=== PATIENT | male | born 1960 | race Hispanic/Latino ===

== ENCOUNTER 2016-11-14 08:30 | Observation (INO) | payer OTHER, SELFPAY ==
[2016-11-14 08:54] LABS: #Basophils 0.1 thou/uL (0.0-0.2); #Eosinphils 0.2 thou/uL (0.0-0.7); #Lymphocytes 1.7 thou/uL (1.20-3.40); #Monocytes 0.6 thou/uL (0.11-0.59); #Neutrophils 5.3 thou/uL (1.40-6.50); %Basophils 0.9 % (0.0-1.0); %Lymphocytes 21.7 % (21.0-51.0); %Monocytes 7.9 % (0.0-10.0); Hematocrit 46.7 % (42.0-52.0); Mean Platelet Volume 9.1 fL (7.4-10.4); Red Blood Cell (RBC) Count 5.05 mill/uL (4.70-6.10); White Blood Cell (WBC) Count 7.8 thou/uL (4.8-10.8)
[2016-11-14 09:21] LABS: ALT (SGPT) 40 U/L (8-55); AST (SGOT) 31 U/L (5-34); Alkaline Phosphatase 117 U/L (40-150); Anion Gap 14 mmol/L (10-20); BUN (Urea Nitrogen) 8 mg/dL (8.4-25.7); Bilirubin, Total 0.4 mg/dL (0.2-1.2); CK (CPK) 151 U/L (30-200); Calc. Creatinine Clearance 0 mL/min (70-130); Calcium 8.9 mg/dL (7.8-10.44); Carbon Dioxide 21 mmol/L (22-29); Chloride 103 mmol/L (98-107); Estimated GFR-MDRD Greater than 90; Globulin 4.3 g/dL (2.4-3.5); Lipase 34 U/L (8-78); Protein, Total 7.9 g/dL (6.0-8.3)
[2016-11-14 09:25] LABS: Troponin I Less than 0.010 ng/mL (< 0.028)
--- NOTE | 2016-11-14 09:31 | RAD ---
CHEST 1 VIEW: HISTORY: Chest pain. COMPARISON: 08/31/14. FINDINGS: Cardiac silhouette is magnified by projection. Pulmonary vasculature is unremarkable. Mediastinum is midline. There is no lobar consolidation or evidence of pneumothorax. monitoring specialist leads ove rlie the chest. IMPRESSION: No active cardiopulmonary abnormalities are demonstrated. POS: [facility]
[2016-11-14] MEDS ORDERED: Ondansetron HCl/PF 4 MG/2 ML Vial ONE (09:44)
[2016-11-14 10:20] LABS: Bilirubin Negative (Negative); Blood, Urine Negative (Negative); Glucose, Urine (Dipstick) >=1000 mg/dL (Negative); Ketone, Urine Negative (Negative); Nitrite Negative (Negative); Protein, Urine (Dipstick) Negative (Neg-Trace)
--- NOTE | 2016-11-14 11:07 | RAD ---
LEFT SHOULDER THREE VIEWS: HISTORY: Chest pain, radiating to arm. COMPARISON: None. FINDINGS: Moderate osteoarthritic disease of the acromioclavicular joint. Enthesopathic changes of the greate r tuberosity are present. No acute fracture or malalignment. IMPRESSION: Mild osteoarthritic disease. POS: [facility]
[2016-11-14 12:14] LABS: Troponin I Less than 0.010 ng/mL (< 0.028)
[2016-11-14] MEDS ORDERED: Milk Of Magnesia 30 ML UDCUP PO PRN (12:22)
[2016-11-14] MEDS ORDERED: Dextrose 5% in Water 1,000 ML IV PRN (12:22)
[2016-11-14] MEDS ORDERED: Ondansetron ODT 4 MG TAB PO PRN (12:22)
[2016-11-14] MEDS ORDERED: Ondansetron HCl/PF 4 MG/2 ML Vial IVP PRN (12:22)
[2016-11-14] MEDS ORDERED: Mag-Al 1200 mg/1200 mg/30 ML UDCUP PO PRN (12:22)
[2016-11-14] MEDS ORDERED: HumaLOG 300 UNITS/3 ML VIAL SC PRN ×2 (12:22)
[2016-11-14] MEDS ORDERED: Loperamide HCl 2 MG CAP PO PRN (12:22)
[2016-11-14] MEDS ORDERED: Dextrose 50% Abboject 50 ML SYRINGE SLOW IVP PRN (12:22)
[2016-11-14] MEDS ORDERED: Zolpidem Tartrate 5 MG TAB PO PRN (12:22)
[2016-11-14] MEDS ORDERED: Ketorolac Tromethamine 30 MG/ML VIAL IVP PRN (12:22)
[2016-11-14] MEDS ORDERED: Senokot 8.6 MG TAB PO PRN (12:22)
[2016-11-14] MEDS ORDERED: HYDROcodone/Acetaminophen 5/325 mg Tablet PO PRN (12:22)
[2016-11-14] MEDS ORDERED: Acetaminophen 325 MG TAB PO PRN (12:22)
[2016-11-14 12:43] VITALS: BMI 42.1
--- NOTE | 2016-11-14 13:37 | SS ---
PRIMARY CARE PHYSICIAN: [facility] REASON FOR ADMISSION: Chest pain. HISTORY OF PRESENT ILLNESS: A 55-year-old male with a history of asthma and obesity, who c pooja to emergency room for complaint of chest pain. The patient reports that this morning he woke up around 5:30. He was getting ready for his work. When he was in shower, he was having chest pain w hich was left-sided in location which radiated to left upper extremity. He did not have any associa matias nausea, vomiting, diaphoresis. He was feeling mild shortness of breath. Chest pain lasted for about few minutes. As he was having left shoulder and arm pain, and he has noticed tingling and num bness feeling in his fingers, and that is why he was concerned about it and decided to come to the e mergency room for evaluation. The patient reports that for the last 2-3 weeks he is experiencing in termittent pricking needle-like pain in his left upper chest without any radiation, but this morning he experienced radiation to arm and that is why he was alarmed about cardiac etiology and decided t o come to the ER. Patient reports that this pain is getting worse with movement of the left upper extremity as well an d he attributes that pain is due to his chronic shoulder pain on his left side. He denies any lifti ng heavy weight. He denies any fever or chills. He denies any relation of chest pain with food, re spiration. He denies any cough, palpitations, dizziness, or syncope. In the emergency room, he had EKG which was unremarkable. His chest x-ray showed no acute cardiopul monary process. He was complaining of chronic shoulder pain and that is why shoulder x-ray was done which showed mild osteoarthritic changes. He was also found with a high blood sugar. PAST MEDICAL HISTORY: Mild intermittent asthma, morbid obesity, osteoarthritis. PAST SURGICAL HISTORY: Right arm surgery, cholecystectomy. PAST PSYCHIATRIC HISTORY: Reviewed and negative. SOCIAL HISTORY: The patient is . He lives at home with his . He drinks alcohol sociall y every week. He smokes occasionally. FAMILY HISTORY: Diabetes and hypertension runs among several family members. REVIEW OF SYSTEMS: The following complete review of systems was negative, unless otherwise mentione d in the HPI or below: Constitutional: Weight loss or gain, ability to conduct usual activities. Skin: Rash, itching. Eyes: Double vision, pain. ENT/Mouth: Nose bleeding, neck stiffness, pain, tenderness. Cardiovascular: Palpitations, dyspnea on exertion, orthopnea. Respiratory: Shortness of breath, wheezing, cough, hemoptysis, fever or night sweats. Gastrointestinal: Poor appetite, abdominal pain, heartburn, nausea, vomiting, constipation, or diar yo. Genitourinary: Urgency, frequency, dysuria, nocturia. Musculoskeletal: Pain, swelling. Neurologic/Psychiatric: Anxiety, depression. Allergy/Immunologic: Skin rash, bleeding tendency. Please see my HPI for pertinent positive and negative. All other review of systems reviewed and neg ative except as mentioned in the HPI. ALLERGIES: No known drug allergies. CURRENT MEDICATIONS: The patient is not taking any medication at this point. EMERGENCY ROOM COURSE: Patient is given IV fluid 1 liter, morphine 4 mg, Zofran 4 mg, and aspirin 3 24 mg. PHYSICAL EXAMINATION: VITAL SIGNS: On arrival, blood pressure 119/74, pulse 92, respiratory rate 20, temperature 98.6, sa turation 94% on room air, and weight 117.9 kilograms. GENERAL: The patient is currently alert, awake, no obvious acute distress. HEAD: Normocephalic, atraumatic. EYES: Pupils round, reactive to light. Extraocular muscles intact. ENT: Oropharynx within normal limits. Moist mucous membranes, no oral lesion, no pharyngeal erythe ma, no exudate. NECK: Supple, range of motion is normal. No meningeal signs of irritation. LUNGS: Clear to auscultation without any rhonchi or rales. CARDIAC: S1, S2 regular without any murmur. ABDOMEN: Morbid obesity limiting examination. Bowel sounds present, nontender, nondistended. No o rganomegaly, no mass, no suprapubic tenderness. BACK: Examination unremarkable. No CVA tenderness. EXTREMITIES: Upper extremity, left shoulder movement is limited due to pain, but otherwise passive movements of all joints are normal. Lower extremity, no edema. Good peripheral pulsation. SKIN: No skin rash. HEMATOLOGICAL SYSTEM: No lymphadenopathy. PSYCHIATRIC: Normal affect. NEUROLOGIC: Nonfocal examination. The patient moves all 4 limbs. Plantar bilateral flexor. IMAGING AND SIGNIFICANT LABORATORY DATA: 1. EKG based on my review reveals normal sinus rhythm within normal limits. Chest x-ray based on m y review, no acute cardiopulmonary process. Shoulder x-ray showed mild osteoarthritic changes on th e left side. 2. CBC: WBC 7.8, hemoglobin 15.8, and platelets 185. BMP: Sodium 134, potassium 3.9, chloride 10 3, carbon dioxide 21, BUN 8, creatinine 0.85, glucose 347, calcium 8.9. 3. LFT: AST 31, ALT 40, alkaline phosphatase 117, albumin 3.6. Lipase 34, CK 151, CK-MB 1.2, trop onin I less than 0.010. ASSESSMENT AND PLAN/IMPRESSION: 1. Acute and recurrent chest pain. This patient has underlying history of smoking, his age, and ne w onset of diabetes. In this way, he has 3 risk factors for coronary artery disease. His descripti on is atypical and probably non-anginal and musculoskeletal pain, but we need to rule out cardiac et iology. His initial EKG is negative. Troponins are negative. The patient is n.p.o. since this mor dana and he did not have any coughing up of any product and he prefers to go for stress test if poss ible today. We will do second set of cardiac enzyme and if that is negative, then we will consider doing a Cardiolite stress test later on today. We will also check D-dimer to rule out any thromboem bolic disorder. If his D-dimer is abnormal, then we will do CT angio to rule out thromboembolic dis order. We will check lipid profile for risk stratification. We will control his pain with Toradol. Meanwhile, we will continue with aspirin 325 mg p.o. daily and nitro patch q.8 hourly. 2. New onset diabetes type 2. We will consult dietitian for diabetic diet education. We will chec k hemoglobin A1c and we will consider adding metformin on discharge as well as glyburide 5 mg p.o. d aily on discharge. The patient is advised to buy glucometer and monitor blood sugar frequently at h ome and see primary care physician for further adjustment of therapy. 3. Morbid obesity. Dietary education given. Weight loss education given. Healthy lifestyle measu res discussed with the patient. 4. Deep venous thrombosis prophylaxis not needed because we are expecting discharge in 24 hours if possible later on today, otherwise tomorrow morning. 5. Gastrointestinal prophylaxis, Pepcid 20 mg p.o. b.i.d. CODE STATUS: Patient is FULL CODE. Disposition plan based on stress test result.
[2016-11-14] MEDS ORDERED: Nitroglycerin 2% Ointment 1 INCH/1 GM Packet TOP SCH (14:00)
[2016-11-14 15:29] VITALS: BP 111/70; TEMP 98.3
[2016-11-14 16:30] LABS: Hemoglobin A1c 10.5 % (4.0-6.0)
--- NOTE | 2016-11-14 19:20 | DIS ---
DATE OF ADMISSION: 11/14/2016 DATE OF DISCHARGE: 11/14/2016 PRIMARY CARE PHYSICIAN[facility]. DISCHARGE DISPOSITION: Home. PRIMARY DISCHARGE DIAGNOSES: 1. Chest pain, ruled out acute coronary syndrome. 2. New onset diabetes type 2. SECONDARY DISCHARGE DIAGNOSES: Obesity with body mass index 42, childhood asthma. PRIMARY PROCEDURE/OPERATION: None. RADIOLOGICAL INVESTIGATION: Chest x-ray normal. Should x-ray showed osteoarthritis, stress test wa s negative. SIGNIFICANT LABORATORY: CBC normal. D-dimer negative, cardiac enzymes negative. Hemoglobin A1c 10 .5, LDL 104. TSH 1.03. Cardiac enzymes negative. LFTs normal. Urinalysis unremarkable. DISCHARGE MEDICATIONS: Glyburide 5 mg p.o. daily, aspirin 81 mg p.o. daily, Pepcid 20 mg p.o. b.i.d ., lovastatin 20 mg p.o. at bedtime, and metformin 1000 mg p.o. b.i.d. CONTRAINDICATIONS: None. CODE STATUS: FULL CODE. INPATIENT CONSULTANTS: None. ALLERGIES: No known drug allergies. DISCHARGE PLAN: Post hospital, the patient will follow up with primary care physician in 1 week. HOSPITAL COURSE: A 55-year-old male who was admitted by me earlier today with chest pain. Please s ee my HPI for further details. EKG was normal. Chest x-ray was normal. Routine workup including c ardiac enzymes negative. This patient was diagnosed with new onset diabetes. His hemoglobin A1c wa s 10.5. He underwent treadmill exercise stress test and that was normal. We provided diabetes educ ation while in hospital. We prescribed diabetes medication and he will follow up with primary care physician as necessary. The patient education about new onset diabetes, diet and medication as well as hypoglycemia precautions discussed with the patient. The patient is clinically stable for discharge and he will follow up with primary care physician. The patient was admitted and discharged on the same day.
[2016-11-14] MEDS ORDERED: FLU VACC QS2017-18 36 mo. & older 0.5 ML SYRINGE IM ONE (21:00)
[2016-11-14] MEDS ORDERED: Famotidine 20 MG TAB PO SCH (21:00)
[2016-11-15] MEDS ORDERED: Aspirin 325 MG TAB PO SCH (09:00)
--- NOTE | 2016-11-16 17:48 | EKG ---
Test Reason : Blood Pressure : / mmHG Vent. Rate : 095 BPM Atrial Rate : 095 BPM P-R Int : 154 ms QRS Dur : 086 ms QT Int : 334 ms P-R-T Axes : 058 018 033 degrees QTc Int : 419 ms Normal sinus rhythm Normal ECG Confirmed by PERCY CONTRERAS ([id number]) on 11/16/2016 5:48:10 PM Referred By: Confirmed By:PERCY CONTRERAS
== END 2016-11-14 18:37 | disposition home or self-care (01) ==
LOC: ERS 08:30 → EEVIPCON 08:30 → 2SW 10:40
PROVIDERS: ADMIT Internal Medicine; ATTEND Internal Medicine
DX: R07.89 Other chest pain (principal); E11.9 Type 2 diabetes mellitus without complications; J45.909 Unspecified asthma, uncomplicated; M19.90 Unspecified osteoarthritis, unspecified site; F17.200 Nicotine dependence, unspecified, uncomplicated; E66.01 Morbid (severe) obesity due to excess calories; Z68.41 Body mass index [BMI] 40.0-44.9, adult; Z90.49 Acquired absence of other specified parts of digestive tract; Z98.890 Other specified postprocedural states
CPT/HCPCS: 36415; 36416; 71010; 80053; 80061; 81003; 82550; 82553; 83036; 83690; 84443; 84484; 85025; 85379; 93005; 93017; 94760; 96361; 96374; 96375; G0378; J2270; J2405

== ENCOUNTER 2017-08-13 08:35 | Emergency (ER) | payer SELFPAY ==
[2017-08-13 08:58] LABS: #Eosinphils 0.2 thou/uL (0.0-0.7); #Lymphocytes 1.6 thou/uL (1.20-3.40); #Monocytes 0.6 thou/uL (0.11-0.59); #Neutrophils 6.9 thou/uL (1.40-6.50); %Basophils 0.3 % (0.0-1.0); %Eosinophils 2.1 % (0.0-10.0); %Neutrophils 74.7 % (42.0-75.0); Hemoglobin 15.4 g/dL (14.0-18.0); Mean Corpuscular HGB CONC 33.6 g/dL (32.0-36.0); Mean Corpuscular Hemoglobin 30.7 pg (27.0-31.0); Mean Corpuscular Volume 91.4 fL (78.0-98.0); Platelet Count 167 thou/uL (130-400); RBC Distribution Width 12.7 % (11.5-14.5); Red Blood Cell (RBC) Count 5.01 mill/uL (4.70-6.10); White Blood Cell (WBC) Count 9.3 thou/uL (4.8-10.8)
[2017-08-13] MEDS ORDERED: Acetaminophen 500 MG TAB ONE ×2 (09:02)
--- NOTE | 2017-08-13 09:10 | RAD ---
TWO VIEWS CHEST: Comparison: None. History: Chest pain. FINDINGS: Two views of the chest show normal sized cardiomediastinal silhouette. There is no evidence of consol idation, mass, or pleural effusion. The bones are unremarkable. IMPRESSION: No evidence of acute cardiopulmonary disease. POS: [facility]
--- NOTE | 2017-08-13 09:17 | CT ---
CT OF THE BRAIN WITHOUT CONTRAST: Date: 08/13/17 COMPARISON: 08/31/14. HISTORY: Headache and chst pain. TECHNIQUE: Multiple contiguous axial images were obtained in a CT of the brain without contrast. FINDINGS: The brain is normal in morphology and attenuation without focal lesions or confluent areas of infarct ion. There is no evidence of hydrocephalus, intracranial hemorrhage, or extra-axial fluid collection. The calvarium and overlying soft tissues are unremarkable. The visualized paranasal sinuses and masto id air cells are well aerated. IMPRESSION: No evidence of acute intracranial abnormality. POS: [facility]
[2017-08-13 09:25] LABS: CKMB 0.9 ng/mL (0-6.6); Troponin I Less than 0.010 ng/mL (< 0.028)
[2017-08-13 10:52] LABS: ALT (SGPT) 37 U/L (8-55); AST (SGOT) 27 U/L (5-34); Albumin 3.9 g/dL (3.5-5.0); Alkaline Phosphatase 108 U/L (40-150); Anion Gap 11 mmol/L (10-20); BUN (Urea Nitrogen) 11 mg/dL (8.4-25.7); Bilirubin, Total 0.6 mg/dL (0.2-1.2); CK (CPK) 107 U/L (30-200); Calc. Creatinine Clearance 0 mL/min (70-130); Carbon Dioxide 24 mmol/L (22-29); Chloride 103 mmol/L (98-107); Estimated GFR-MDRD Greater than 90; Globulin 3.7 g/dL (2.4-3.5); Glucose 247 mg/dL (70-105); Lipase 20 U/L (8-78); Potassium 4.2 mmol/L (3.5-5.1); Protein, Total 7.6 g/dL (6.0-8.3); Sodium 134 mmol/L (136-145)
[2017-08-13 11:38] LABS: Troponin I Less than 0.010 ng/mL (< 0.028)
[2017-08-13] MEDS ORDERED: Ketorolac Tromethamine 30 MG/ML VIAL ONE (11:51)
--- NOTE | 2017-08-15 14:24 | EKG ---
Test Reason : Blood Pressure : / mmHG Vent. Rate : 095 BPM Atrial Rate : 095 BPM P-R Int : 148 ms QRS Dur : 084 ms QT Int : 332 ms P-R-T Axes : 055 -02 031 degrees QTc Int : 417 ms Normal sinus rhythm Normal ECG Confirmed by LINDA BRIONES ([id number]), purchasing expeditor KARYN IRENE ([id number]) on 08/15/2017 2:23:57 PM Referred By: Confirmed By:LINDA BRIONES
== END 2017-08-13 12:10 | disposition home or self-care (01) ==
LOC: ERS 08:35
DX: R07.9 Chest pain, unspecified (principal); R51 Headache; J45.909 Unspecified asthma, uncomplicated; E11.9 Type 2 diabetes mellitus without complications; F17.210 Nicotine dependence, cigarettes, uncomplicated
CPT/HCPCS: 36415; 70450; 71046; 80053; 82550; 82553; 83690; 84484; 85025; 93005; 96374; J1885

== ENCOUNTER 2018-08-10 18:45 | Emergency (ER) | payer SELFPAY ==
[2018-08-10] MEDS ORDERED: Lidocaine 1% w/Epinephrine 1:100K 20 ML VIAL ONE (19:57)
[2018-08-10] MEDS ORDERED: HYDROcodone/Acetaminophen 5/325 mg Tablet ONE (19:57)
[2018-08-10] MEDS ORDERED: Ibuprofen 800 MG TAB ONE (20:05)
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
== END 2018-08-10 21:50 | disposition home or self-care (01) ==
LOC: ERS 18:45
DX: S01.21XA Laceration without foreign body of nose, initial encounter (principal); E11.9 Type 2 diabetes mellitus without complications; Z79.84 Long term (current) use of oral hypoglycemic drugs; F17.210 Nicotine dependence, cigarettes, uncomplicated; W22.8XXA Striking against or struck by other objects, initial encounter
CPT/HCPCS: 12011; 70486; J2001

== ENCOUNTER 2018-08-18 16:56 | Emergency (ER) | payer SELFPAY | END 2018-08-18 18:00 | disposition home or self-care (01) | LOC: ERS 16:56 | DX: S01.511D Laceration without foreign body of lip, subsequent encounter (principal); E11.9 Type 2 diabetes mellitus without complications; E78.5 Hyperlipidemia, unspecified; J45.909 Unspecified asthma, uncomplicated; F17.210 Nicotine dependence, cigarettes, uncomplicated; Z79.899 Other long term (current) drug therapy; Z79.84 Long term (current) use of oral hypoglycemic drugs; X99.8XXD Assault by other sharp object, subsequent encounter ==

== ENCOUNTER 2020-09-29 13:54 | Inpatient (IN) | payer OTHER ==
[2020-09-29 14:34] LABS: Hemoglobin 16.3 g/dL (14.0-18.0); Mean Corpuscular HGB CONC 32.7 g/dL (32.0-36.0); Mean Corpuscular Hemoglobin 30.8 pg (27.0-31.0); Mean Corpuscular Volume 94.3 fL (78.0-98.0); Mean Platelet Volume 9.8 fL (7.4-10.4); Platelet Count 164 thou/uL (130-400); RBC Distribution Width 14.4 % (11.5-14.5); Red Blood Cell (RBC) Count 5.28 mill/uL (4.70-6.10); White Blood Cell (WBC) Count 24.1 thou/uL (4.8-10.8)
[2020-09-29 14:50] LABS: ALT (SGPT) 52 U/L (8-55); AST (SGOT) 15 U/L (5-34); Albumin 2.8 g/dL (3.5-5.0); Alkaline Phosphatase 288 U/L (40-110); Anion Gap 14 mmol/L (10-20); BUN (Urea Nitrogen) 18 mg/dL (8.4-25.7); Bilirubin, Total 0.9 mg/dL (0.2-1.2); Calc. Creatinine Clearance 0 mL/min (70-130); Calcium 9.3 mg/dL (7.8-10.44); Carbon Dioxide 28 mmol/L (22-29); Chloride 95 mmol/L (98-107); Globulin 3.8 g/dL (2.4-3.5); Glucose 436 mg/dL (70-105); Potassium 3.9 mmol/L (3.5-5.1); Protein, Total 6.6 g/dL (6.0-8.3); Sodium 133 mmol/L (136-145)
[2020-09-29] MEDS ORDERED: Morphine 4 MG/ML VIAL ONE (14:51)
[2020-09-29] MEDS ORDERED: Ibuprofen 800 MG TAB ONE (14:52)
[2020-09-29] MEDS ORDERED: Ondansetron PF 4 MG/2 ML Vial ONE (14:52)
[2020-09-29 14:58] LABS: Band 26 % (5-11); Lymphocytes 2 % (21-51); MDiff Complete? YES; Monocytes 2 % (0-10); Neutrophil 70 % (42-75); Platelet Morphology Comment Appears Adequate; RBC Morphology Normal; Vacuoles SLIGHT
[2020-09-29 15:28] LABS: Bilirubin Negative (Negative); Blood, Urine Negative (Negative); Clarity Clear (Clear); Glucose, Urine (Dipstick) Greater than 1000 mg/dL (Negative); Ketone, Urine Negative (Negative); Leukocyte Negative Leu/uL (Negative); Nitrite Negative (Negative); Protein, Urine (Dipstick) Negative (Neg-Trace); Specific Gravity, Urine 1.042 (1.002-1.036)
[2020-09-29] MEDS ORDERED: Dexamethasone 10 MG/ML VIAL ONE (15:37)
[2020-09-29] MEDS ORDERED: Piperacillin/Tazobactam 4.5 GM in Sodium Chloride 0.9% 100 ML IVPB SCH ×2 (15:45→18:00)
[2020-09-29] MEDS ORDERED: Benzonatate 100 MG CAP PO PRN (17:49)
[2020-09-29] MEDS ORDERED: Bisacodyl 5 MG TAB PO PRN (17:50)
[2020-09-29] MEDS ORDERED: Ondansetron PF 4 MG/2 ML Vial IVP PRN (17:50)
[2020-09-29] MEDS ORDERED: HumaLOG 300 UNITS/3 ML VIAL SC PRN (17:52)
[2020-09-29] MEDS ORDERED: Dextrose 5% in Water 1,000 ML IV PRN (17:52)
[2020-09-29] MEDS ORDERED: Dextrose 50% Abboject 50 ML SYRINGE SLOW IVP PRN (17:52)
[2020-09-29 18:25] LABS: Lactic Acid 1.7 mmol/L (0.5-2.2)
[2020-09-29] MEDS ORDERED: RENALLY ADJUST ANTIBIOTICS IVPB PRN (20:10)
[2020-09-29] MEDS ORDERED: Piperacillin/Tazobactam 3.375 GM VIAL ONE (20:20)
[2020-09-29] MEDS: Piperacillin/Tazobactam 3.375 GM in Sodium Chloride 0.9% 100 ML IVPB SCH (20:28)
[2020-09-29] MEDS ORDERED: Acetaminophen 325 MG TAB ONE (21:12)
[2020-09-29] MEDS: Acetaminophen 325 MG TAB PO PRN (21:33)
[2020-09-29] MEDS: Apixaban 5 MG TAB PO SCH (21:52)
[2020-09-29] MEDS: Atorvastatin Calcium 20 MG TAB PO SCH (21:52)
[2020-09-29] MEDS ORDERED: VANCOMYCIN 2 GRAM/400 ML BAG 2 GM in Premix Bag 1 BAG IVPB SCH (22:00)
[2020-09-29] MEDS ORDERED: Morphine 2 MG/ML VIAL ONE (23:11)
[2020-09-29] MEDS ORDERED: Morphine 2 MG/ML VIAL SLOW IVP SCH (23:15)
[2020-09-30 04:57] LABS: Anion Gap 12 mmol/L (10-20); BUN (Urea Nitrogen) 23 mg/dL (8.4-25.7); Calc. Creatinine Clearance 140 mL/min (70-130); Calcium 8.9 mg/dL (7.8-10.44); Carbon Dioxide 26 mmol/L (22-29); Chloride 99 mmol/L (98-107); Glucose 453 mg/dL (70-105); Potassium 4.3 mmol/L (3.5-5.1); Sodium 133 mmol/L (136-145)
[2020-09-30 05:08] LABS: CRP (Inflammatory) 39.37 mg/dL (= or < 0.5)
[2020-09-30 05:11] LABS: Band 29 % (5-11); Hemoglobin 14.4 g/dL (14.0-18.0); Lymphocytes 2 % (21-51); MDiff Complete? YES; Mean Corpuscular HGB CONC 33.1 g/dL (32.0-36.0); Mean Corpuscular Hemoglobin 31.4 pg (27.0-31.0); Mean Corpuscular Volume 94.9 fL (78.0-98.0); Mean Platelet Volume 10.2 fL (7.4-10.4); Metamyelocyte 2 % (0-0); Monocytes 5 % (0-10); Neutrophil 61 % (42-75); Platelet Count 114 thou/uL (130-400); Platelet Morphology Comment Appears Decreased; RBC Distribution Width 14.2 % (11.5-14.5); RBC Morphology Normal; Reactive Lymphocytes 1 % (0-10); White Blood Cell (WBC) Count 24.7 thou/uL (4.8-10.8)
[2020-09-30] MEDS: Acetaminophen 325 MG TAB PO PRN ×2 (06:00→11:32)
[2020-09-30] MEDS: Piperacillin/Tazobactam 3.375 GM in Sodium Chloride 0.9% 100 ML IVPB SCH ×2 (06:01→15:07)
[2020-09-30] MEDS ORDERED: Piperacillin/Tazobactam 3.375 GM VIAL ONE (06:16)
[2020-09-30] MEDS ORDERED: Acetaminophen 325 MG TAB ONE ×2 (06:16→11:24)
[2020-09-30] MEDS: Vancomycin 1 GM in Premix Bag 1 BAG IVPB SCH ×3 (07:05→13:51)
[2020-09-30] MEDS: Mometasone 200 MCG/Formoterol 5 MCG 120 PUFF INHALER INH SCH ×2 (08:31→18:10)
[2020-09-30] MEDS ORDERED: Dexamethasone 10 MG/ML VIAL ONE (08:45)
[2020-09-30] MEDS ORDERED: Aspirin Chewable 81 MG TAB ONE (08:45)
[2020-09-30] MEDS ORDERED: Ascorbic Acid 500 mg Chewable Tablet ONE (08:51)
[2020-09-30] MEDS ORDERED: Zinc Sulfate 220 MG CAP ONE (08:51)
[2020-09-30] MEDS: Aspirin Chewable 81 MG TAB PO SCH (10:03)
[2020-09-30] MEDS: Ascorbic Acid 500 mg Chewable Tablet PO SCH (10:03)
[2020-09-30] MEDS: Zinc Sulfate 220 MG CAP PO SCH (10:04)
[2020-09-30] MEDS: Dexamethasone 10 MG/ML VIAL SLOW IVP SCH (10:04)
[2020-09-30] MEDS ORDERED: Vancomycin 1 GM/200 ML BAG ONE (10:05)
[2020-09-30] MEDS: Apixaban 5 MG TAB PO SCH ×2 (10:21→22:11)
[2020-09-30] MEDS ORDERED: Benzonatate 100 MG CAP ONE (10:23)
[2020-09-30] MEDS ORDERED: Non-Formulary Item 1 EACH (Albuterol Sulfate [Albuterol Sulfate Hfa] 8.5 GM Hfa.Aer.Ad) IH PRN (14:43)
[2020-09-30] MEDS: traMADol HCl 50 MG TAB PO PRN ×2 (15:06→23:18)
[2020-09-30] MEDS ORDERED: HumaLOG 300 UNITS/3 ML VIAL SC SCH ×3 (18:00→23:30)
[2020-09-30 21:36] LABS: Vancomycin, Trough 9.7 ug/mL
[2020-09-30] MEDS: Atorvastatin Calcium 20 MG TAB PO SCH (22:02)
[2020-09-30] MEDS: Lantus 1000 UNITS/10 ML VIAL SC SCH (22:03)
[2020-09-30] MEDS: Vancomycin 1.5 GRAM/300 ML BAG 1.5 GM in Premix Bag 1 BAG IVPB SCH (22:09)
[2020-10-01] MEDS: Piperacillin/Tazobactam 3.375 GM in Sodium Chloride 0.9% 100 ML IVPB SCH ×4 (00:04→21:39)
[2020-10-01] MEDS: Vancomycin 1.5 GRAM/300 ML BAG 1.5 GM in Premix Bag 1 BAG IVPB SCH ×3 (04:05→23:22)
[2020-10-01] MEDS: Guaifenesin DM 100-10/5 ML UDCUP PO PRN (05:46)
[2020-10-01] MEDS: Mometasone 200 MCG/Formoterol 5 MCG 120 PUFF INHALER INH SCH ×2 (06:52→19:18)
[2020-10-01] MEDS: HumaLOG 300 UNITS/3 ML VIAL SC PRN ×2 (07:28→20:16)
[2020-10-01] MEDS: traMADol HCl 50 MG TAB PO PRN (10:08)
[2020-10-01] MEDS: Aspirin Chewable 81 MG TAB PO SCH (10:08)
[2020-10-01] MEDS: Ascorbic Acid 500 mg Chewable Tablet PO SCH (10:08)
[2020-10-01] MEDS: Zinc Sulfate 220 MG CAP PO SCH (10:08)
[2020-10-01] MEDS: Dexamethasone 10 MG/ML VIAL SLOW IVP SCH (10:09)
[2020-10-01] MEDS: Apixaban 5 MG TAB PO SCH (10:09)
[2020-10-01] MEDS: Lantus 1000 UNITS/10 ML VIAL SC SCH ×2 (10:10→20:24)
[2020-10-01 14:52] LABS: PTT 28.4 sec (22.9-36.1); Prothrombin Time 13.6 sec (12.0-14.7)
[2020-10-01] MEDS ORDERED: HYDROmorphone 2 MG/ML VIAL ONE (15:15)
[2020-10-01] MEDS ORDERED: Fentanyl 100 MCG/2 ML VIAL ONE ×2 (15:15→18:38)
[2020-10-01] MEDS ORDERED: Insulin Regular 300 UNITS/3 ML VIAL ONE (15:22)
[2020-10-01] MEDS ORDERED: PHENYLEPHRINE-NS 100 MCG/ML 10 ML SYRINGE ONE (15:34)
[2020-10-01] MEDS ORDERED: Phenylephrine 10 MG/ML VIAL ONE (15:35)
[2020-10-01] MEDS ORDERED: Rocuronium Bromide 10 MG/ML (10ML VIAL) ONE (15:49)
[2020-10-01] MEDS ORDERED: Ondansetron PF 4 MG/2 ML Vial ONE (15:49)
[2020-10-01] MEDS ORDERED: Succinylcholine 200 MG/10 ml SYRINGE FS ONE (15:49)
[2020-10-01] MEDS ORDERED: Lidocaine 1% PF 5 ML VIAL ONE (15:49)
[2020-10-01] MEDS ORDERED: Glycopyrrolate 0.2 MG/ML 5 ML SYRINGE ONE (15:49)
[2020-10-01] MEDS ORDERED: [UNRECOGNIZED DRUG - OTHER] IV SCH (17:00)
[2020-10-01] MEDS ORDERED: HUM PROTHROMBIN CPLX IV SCH (17:00)
[2020-10-01] MEDS ORDERED: HUMAN PROTHROMBIN COMPLX IV SCH (17:00)
[2020-10-01] MEDS ORDERED: Morphine 4 MG/ML VIAL SLOW IVP PRN (17:42)
[2020-10-01] MEDS ORDERED: Promethazine HCl 25 MG/ML VIAL IM PRN ×2 (18:16→19:32)
[2020-10-01] MEDS ORDERED: diphenhydrAMINE 50 MG/ML VIAL IM PRN (18:16)
[2020-10-01] MEDS ORDERED: diphenhydrAMINE 50 MG/ML VIAL IVP PRN (18:16)
[2020-10-01] MEDS ORDERED: Naloxone HCl 0.4 mg/ml Vial IV PRN (18:16)
[2020-10-01] MEDS ORDERED: HYDROmorphone 10 mg/100 ml CADD IVPB PRN (18:16)
[2020-10-01] MEDS ORDERED: diphenhydrAMINE 25 MG CAP PO PRN (18:16)
[2020-10-01] MEDS ORDERED: Communication Order-Pharmacy FS SCH (18:30)
[2020-10-01 18:35] LABS: Hemoglobin 14.3 g/dL (14.0-18.0); Mean Corpuscular HGB CONC 31.2 g/dL (32.0-36.0); Mean Corpuscular Hemoglobin 29.7 pg (27.0-31.0); Mean Platelet Volume 10.4 fL (7.4-10.4); Platelet Count 90 thou/uL (130-400); Red Blood Cell (RBC) Count 4.83 mill/uL (4.70-6.10); White Blood Cell (WBC) Count 16.7 thou/uL (4.8-10.8)
[2020-10-01 18:52] LABS: Lactic Acid 2.1 mmol/L (0.5-2.2)
[2020-10-01 19:04] LABS: Band 15 % (5-11); Lymphocytes 1 % (21-51); MDiff Complete? YES; Metamyelocyte 1 % (0-0); Monocytes 3 % (0-10); Neutrophil 80 % (42-75); Platelet Morphology Comment Appears Decreased; RBC Morphology Normal
[2020-10-01 19:07] LABS: ALT (SGPT) 35 U/L (8-55); AST (SGOT) 32 U/L (5-34); Albumin 2.4 g/dL (3.5-5.0); Alkaline Phosphatase 267 U/L (40-110); Anion Gap 12 mmol/L (10-20); BUN (Urea Nitrogen) 18 mg/dL (8.4-25.7); Bilirubin, Total 0.5 mg/dL (0.2-1.2); Calc. Creatinine Clearance 140 mL/min (70-130); Calcium 8.7 mg/dL (7.8-10.44); Carbon Dioxide 29 mmol/L (22-29); Chloride 102 mmol/L (98-107); Globulin 3.6 g/dL (2.4-3.5); Glucose 309 mg/dL (70-105); Magnesium 1.9 mg/dL (1.6-2.6); Phosphorus 3.9 mg/dL (2.3-4.7); Potassium 4.6 mmol/L (3.5-5.1); Sodium 138 mmol/L (136-145)
[2020-10-01] MEDS ORDERED: Ondansetron HCl/PF 4 MG/2 ML Vial IVP PRN (19:32)
[2020-10-01] MEDS ORDERED: Promethazine HCl 25 MG/ML VIAL IVPB PRN (19:32)
[2020-10-01] MEDS ORDERED: HYDROmorphone 2 MG/ML VIAL SLOW IVP PRN (19:32)
[2020-10-01] MEDS: Sodium Chloride 0.9% 1,000 ML IV SCH (21:39)
[2020-10-01] MEDS: Atorvastatin Calcium 20 MG TAB PO SCH (21:39)
[2020-10-02] MEDS: Sodium Chloride 0.9% 1,000 ML IV SCH ×2 (03:35→12:30)
[2020-10-02 03:56] LABS: Lactic Acid 0.9 mmol/L (0.5-2.2)
[2020-10-02 04:02] LABS: Anion Gap 10 mmol/L (10-20); BUN (Urea Nitrogen) 18 mg/dL (8.4-25.7); Calc. Creatinine Clearance 193 mL/min (70-130); Carbon Dioxide 27 mmol/L (22-29); Chloride 102 mmol/L (98-107); Glucose 119 mg/dL (70-105); Magnesium 1.8 mg/dL (1.6-2.6); Phosphorus 2.9 mg/dL (2.3-4.7); Potassium 3.8 mmol/L (3.5-5.1); Sodium 135 mmol/L (136-145)
[2020-10-02 05:09] LABS: Hemoglobin 12.8 g/dL (14.0-18.0); Mean Corpuscular HGB CONC 32.4 g/dL (32.0-36.0); Mean Corpuscular Hemoglobin 30.9 pg (27.0-31.0); Mean Corpuscular Volume 95.2 fL (78.0-98.0); Mean Platelet Volume 10.8 fL (7.4-10.4); Platelet Count 87 thou/uL (130-400); RBC Distribution Width 13.9 % (11.5-14.5); Red Blood Cell (RBC) Count 4.13 mill/uL (4.70-6.10); White Blood Cell (WBC) Count 19.3 thou/uL (4.8-10.8)
[2020-10-02 05:10] LABS: Band 11 % (5-11); Lymphocytes 7 % (21-51); MDiff Complete? YES; Metamyelocyte 1 % (0-0); Monocytes 6 % (0-10); Neutrophil 72 % (42-75); Platelet Morphology Comment Appears Decreased; RBC Morphology Normal; Reactive Lymphocytes 3 % (0-10)
[2020-10-02] MEDS: Piperacillin/Tazobactam 3.375 GM in Sodium Chloride 0.9% 100 ML IVPB SCH ×3 (05:29→20:33)
[2020-10-02] MEDS: Vancomycin 1.5 GRAM/300 ML BAG 1.5 GM in Premix Bag 1 BAG IVPB SCH ×3 (05:30→22:55)
[2020-10-02] MEDS: Mometasone 200 MCG/Formoterol 5 MCG 120 PUFF INHALER INH SCH ×2 (07:46→19:14)
[2020-10-02] MEDS ORDERED: Potassium Phosphate 15 MMOL in Sodium Chloride 0.9% 250 ML 250 ML IVPB SCH (08:00)
[2020-10-02] MEDS ORDERED: Magnesium 2 GM/50 ML 2 GM in Premix Bag 1 BAG IVPB SCH (08:00)
[2020-10-02] MEDS: Enoxaparin Sodium 60 MG/0.6 ML SYRINGE SC SCH ×2 (08:12→20:33)
[2020-10-02] MEDS: Lantus 1000 UNITS/10 ML VIAL SC SCH ×2 (08:12→20:34)
[2020-10-02] MEDS: Dexamethasone 10 MG/ML VIAL SLOW IVP SCH (08:15)
[2020-10-02] MEDS ORDERED: Lidocaine 2% Jelly 5 ML TUBE ONE (09:05)
[2020-10-02] MEDS ORDERED: Midazolam HCl 2 mg/2 ml Vial ONE (09:05)
[2020-10-02] MEDS ORDERED: Fentanyl 100 MCG/2 ML VIAL ONE ×4 (09:05→11:37)
[2020-10-02] MEDS ORDERED: PROPOFOL 200 MG/20 ML VIAL ONE (09:50)
[2020-10-02] MEDS ORDERED: Glycopyrrolate 0.2 MG/ML 5 ML SYRINGE ONE (09:50)
[2020-10-02] MEDS ORDERED: Rocuronium Bromide 10 MG/ML (10ML VIAL) ONE (09:50)
[2020-10-02] MEDS ORDERED: Succinylcholine 200 MG/10 ml SYRINGE FS ONE (09:50)
[2020-10-02] MEDS ORDERED: Ondansetron PF 4 MG/2 ML Vial ONE (09:50)
[2020-10-02] MEDS ORDERED: Lidocaine 1% PF 5 ML VIAL ONE (09:50)
[2020-10-02] MEDS ORDERED: Ondansetron HCl/PF 4 MG/2 ML Vial IVP PRN (11:09)
[2020-10-02] MEDS ORDERED: Promethazine HCl 25 MG/ML VIAL IM PRN (11:09)
[2020-10-02] MEDS ORDERED: Promethazine HCl 25 MG/ML VIAL IVPB PRN (11:09)
[2020-10-02] MEDS ORDERED: Acetaminophen 325 MG TAB PO SCH (12:00)
[2020-10-02] MEDS: Zinc Sulfate 220 MG CAP PO SCH (12:50)
[2020-10-02] MEDS: Ascorbic Acid 500 mg Chewable Tablet PO SCH (12:50)
[2020-10-02] MEDS ORDERED: Acetaminophen 500 MG TAB ONE (14:13)
[2020-10-02] MEDS ORDERED: Piperacillin/Tazobactam 3.375 GM VIAL ONE (14:13)
[2020-10-02] MEDS ORDERED: Sodium Chloride 0.9% 100 ML ONE (14:13)
[2020-10-02] MEDS: Acetaminophen 500 MG TAB PO SCH ×3 (14:15→20:50)
[2020-10-02] MEDS ORDERED: Famotidine/PF 20 mg/2ml Vial ONE (20:27)
[2020-10-02] MEDS: Atorvastatin Calcium 20 MG TAB PO SCH (20:41)
[2020-10-02 22:28] LABS: Magnesium 1.7 mg/dL (1.6-2.6); Vancomycin, Trough 15.2 ug/mL
[2020-10-03] MEDS: HumaLOG 300 UNITS/3 ML VIAL SC PRN ×5 (00:23→21:02)
[2020-10-03] MEDS: Acetaminophen 500 MG TAB PO SCH ×4 (01:48→20:59)
[2020-10-03] MEDS: Piperacillin/Tazobactam 3.375 GM in Sodium Chloride 0.9% 100 ML IVPB SCH ×3 (04:48→21:04)
[2020-10-03] MEDS: Vancomycin 1.5 GRAM/300 ML BAG 1.5 GM in Premix Bag 1 BAG IVPB SCH ×3 (04:54→23:04)
[2020-10-03 06:14] LABS: Hemoglobin 12.6 g/dL (14.0-18.0); Mean Corpuscular HGB CONC 33.1 g/dL (32.0-36.0); Mean Corpuscular Volume 93.6 fL (78.0-98.0); Mean Platelet Volume 10.1 fL (7.4-10.4); Platelet Count 92 thou/uL (130-400); RBC Distribution Width 13.9 % (11.5-14.5); Red Blood Cell (RBC) Count 4.07 mill/uL (4.70-6.10); White Blood Cell (WBC) Count 10.6 thou/uL (4.8-10.8)
[2020-10-03 06:24] LABS: Anion Gap 10 mmol/L (10-20); BUN (Urea Nitrogen) 12 mg/dL (8.4-25.7); Calc. Creatinine Clearance 173 mL/min (70-130); Calcium 7.8 mg/dL (7.8-10.44); Carbon Dioxide 27 mmol/L (22-29); Chloride 100 mmol/L (98-107); Glucose 239 mg/dL (70-105); Potassium 3.2 mmol/L (3.5-5.1); Sodium 134 mmol/L (136-145)
[2020-10-03 06:40] LABS: Band 2 % (5-11); Hypochromia SLIGHT = 6-15 cells (100X) (0-5/hpf); Lymphocytes 15 % (21-51); MDiff Complete? YES; Monocytes 14 % (0-10); Neutrophil 68 % (42-75); Platelet Morphology Comment Appears Decreased; Reactive Lymphocytes 1 % (0-10)
[2020-10-03] MEDS: Mometasone 200 MCG/Formoterol 5 MCG 120 PUFF INHALER INH SCH ×2 (07:12→19:12)
[2020-10-03] MEDS ORDERED: Magnesium 2 GM/50 ML 2 GM in Premix Bag 1 BAG IVPB SCH (07:45)
[2020-10-03] MEDS ORDERED: Potassium Phosphate 30 MMOL, Magnesium Sulfate 2 GM in Sodium Chloride 0.9% 250 ML 250 ML IVPB SCH (07:45)
[2020-10-03] MEDS: Dexamethasone 10 MG/ML VIAL SLOW IVP SCH (09:15)
[2020-10-03] MEDS: Enoxaparin Sodium 60 MG/0.6 ML SYRINGE SC SCH ×2 (09:16→21:00)
[2020-10-03] MEDS: Zinc Sulfate 220 MG CAP PO SCH (09:17)
[2020-10-03] MEDS: Ascorbic Acid 500 mg Chewable Tablet PO SCH (09:17)
[2020-10-03] MEDS: Lantus 1000 UNITS/10 ML VIAL SC SCH ×2 (09:19→21:00)
[2020-10-03] MEDS: Guaifenesin DM 100-10/5 ML UDCUP PO PRN (15:34)
[2020-10-03 16:46] LABS: Magnesium 2.2 mg/dL (1.6-2.6)
[2020-10-03] MEDS: Atorvastatin Calcium 20 MG TAB PO SCH (20:59)
[2020-10-03] MEDS: Benzonatate 100 MG CAP PO SCH (21:00)
[2020-10-03] MEDS: guaiFENesin/Codeine 200 mg/20 mg 10 ml Cup PO PRN (22:46)
[2020-10-04] MEDS: Acetaminophen 500 MG TAB PO SCH ×4 (01:50→20:17)
[2020-10-04] MEDS: HumaLOG 300 UNITS/3 ML VIAL SC PRN ×2 (01:50→20:30)
[2020-10-04] MEDS: Piperacillin/Tazobactam 3.375 GM in Sodium Chloride 0.9% 100 ML IVPB SCH ×3 (04:51→20:16)
[2020-10-04] MEDS: guaiFENesin/Codeine 200 mg/20 mg 10 ml Cup PO PRN ×4 (04:51→23:06)
[2020-10-04] MEDS: Vancomycin 1.5 GRAM/300 ML BAG 1.5 GM in Premix Bag 1 BAG IVPB SCH ×3 (04:51→21:32)
[2020-10-04] MEDS: Mometasone 200 MCG/Formoterol 5 MCG 120 PUFF INHALER INH SCH ×2 (06:50→18:29)
[2020-10-04 07:32] LABS: Hemoglobin 12.9 g/dL (14.0-18.0); Mean Corpuscular HGB CONC 32.6 g/dL (32.0-36.0); Mean Corpuscular Hemoglobin 30.5 pg (27.0-31.0); Mean Corpuscular Volume 93.7 fL (78.0-98.0); Mean Platelet Volume 9.6 fL (7.4-10.4); Platelet Count 92 thou/uL (130-400); RBC Distribution Width 13.8 % (11.5-14.5); Red Blood Cell (RBC) Count 4.22 mill/uL (4.70-6.10); White Blood Cell (WBC) Count 7.6 thou/uL (4.8-10.8)
[2020-10-04 07:51] LABS: MDiff Complete? YES
[2020-10-04 07:52] LABS: Band 13 % (5-11); Eosinophils 4 % (0-10); Lymphocytes 14 % (21-51); Metamyelocyte 1 % (0-0); Monocytes 6 % (0-10); Myelocyte 3 % (0-0); Neutrophil 56 % (42-75); Platelet Morphology Comment Appears Decreased; Polychromasia SLIGHT = 2-3 cells (100X) (0-2/hpf); Reactive Lymphocytes 3 % (0-10); Vacuoles SLIGHT
[2020-10-04 07:58] LABS: Anion Gap 7 mmol/L (10-20); BUN (Urea Nitrogen) 9 mg/dL (8.4-25.7); Calc. Creatinine Clearance 219 mL/min (70-130); Calcium 7.9 mg/dL (7.8-10.44); Carbon Dioxide 30 mmol/L (22-29); Chloride 102 mmol/L (98-107); Glucose 154 mg/dL (70-105); Magnesium 1.9 mg/dL (1.6-2.6); Phosphorus 2.6 mg/dL (2.3-4.7); Potassium 3.7 mmol/L (3.5-5.1); Sodium 135 mmol/L (136-145)
[2020-10-04] MEDS: Enoxaparin Sodium 60 MG/0.6 ML SYRINGE SC SCH ×2 (09:28→20:24)
[2020-10-04] MEDS: Dexamethasone 10 MG/ML VIAL SLOW IVP SCH (09:29)
[2020-10-04] MEDS: Ascorbic Acid 500 mg Chewable Tablet PO SCH (09:30)
[2020-10-04] MEDS: Benzonatate 100 MG CAP PO SCH ×3 (09:30→20:18)
[2020-10-04] MEDS: Zinc Sulfate 220 MG CAP PO SCH (09:30)
[2020-10-04] MEDS: Lantus 1000 UNITS/10 ML VIAL SC SCH ×2 (10:48→21:34)
[2020-10-04] MEDS ORDERED: Bupivacaine PF 0.5% 30 ML VIAL ONE (12:20)
[2020-10-04] MEDS ORDERED: Lidocaine 1% w/Epinephrine 1:100K 20 ML VIAL ONE (12:20)
[2020-10-04] MEDS ORDERED: Sodium Chloride 0.9% 100 ML ONE (12:34)
[2020-10-04] MEDS ORDERED: Piperacillin/Tazobactam 3.375 GM VIAL ONE (12:34)
[2020-10-04] MEDS ORDERED: Succinylcholine 200 MG/10 ml SYRINGE FS ONE (12:42)
[2020-10-04] MEDS ORDERED: Lidocaine 1% PF 5 ML VIAL ONE (12:42)
[2020-10-04] MEDS ORDERED: PROPOFOL 200 MG/20 ML VIAL ONE (12:42)
[2020-10-04] MEDS ORDERED: Rocuronium Bromide 10 MG/ML (10ML VIAL) ONE (12:42)
[2020-10-04] MEDS ORDERED: Glycopyrrolate 0.2 MG/ML 5 ML SYRINGE ONE (12:42)
[2020-10-04] MEDS ORDERED: Ondansetron PF 4 MG/2 ML Vial ONE (12:42)
[2020-10-04] MEDS ORDERED: Midazolam HCl 2 mg/2 ml Vial ONE (12:49)
[2020-10-04] MEDS ORDERED: Fentanyl 100 MCG/2 ML VIAL ONE ×2 (12:49)
[2020-10-04] MEDS ORDERED: Nystatin 100,000 Units/mL UDCUP SSW SCH ×2 (19:15→21:00)
[2020-10-04] MEDS: Guaifenesin DM 100-10/5 ML UDCUP PO PRN (20:17)
[2020-10-04] MEDS: Atorvastatin Calcium 20 MG TAB PO SCH (20:18)
[2020-10-05] MEDS: HumaLOG 300 UNITS/3 ML VIAL SC PRN ×6 (00:42→23:14)
[2020-10-05] MEDS: Acetaminophen 500 MG TAB PO SCH ×4 (02:35→21:06)
[2020-10-05] MEDS: Piperacillin/Tazobactam 3.375 GM in Sodium Chloride 0.9% 100 ML IVPB SCH ×3 (04:38→21:08)
[2020-10-05] MEDS: Vancomycin 1.5 GRAM/300 ML BAG 1.5 GM in Premix Bag 1 BAG IVPB SCH (06:04)
[2020-10-05 06:13] LABS: #Eosinphils 0.2 thou/uL (0.0-0.7); #Lymphocytes 0.8 thou/uL (1.20-3.40); #Monocytes 0.4 thou/uL (0.11-0.59); #Neutrophils 9.1 thou/uL (1.40-6.50); %Basophils 0.1 % (0.0-1.0); %Eosinophils 1.6 % (0.0-10.0); %Lymphocytes 7.7 % (21.0-51.0); %Monocytes 3.3 % (0.0-10.0); %Neutrophils 87.3 % (42.0-75.0); Hemoglobin 12.8 g/dL (14.0-18.0); Mean Corpuscular HGB CONC 31.6 g/dL (32.0-36.0); Mean Corpuscular Hemoglobin 29.5 pg (27.0-31.0); Mean Corpuscular Volume 93.2 fL (78.0-98.0); Mean Platelet Volume 9.3 fL (7.4-10.4); Platelet Count 107 thou/uL (130-400); RBC Distribution Width 14.2 % (11.5-14.5); Red Blood Cell (RBC) Count 4.36 mill/uL (4.70-6.10); White Blood Cell (WBC) Count 10.5 thou/uL (4.8-10.8)
[2020-10-05 06:26] LABS: Anion Gap 9 mmol/L (10-20); BUN (Urea Nitrogen) 8 mg/dL (8.4-25.7); Calc. Creatinine Clearance 207 mL/min (70-130); Calcium 7.9 mg/dL (7.8-10.44); Carbon Dioxide 26 mmol/L (22-29); Chloride 99 mmol/L (98-107); Glucose 227 mg/dL (70-105); Potassium 3.6 mmol/L (3.5-5.1); Sodium 130 mmol/L (136-145)
[2020-10-05] MEDS: Mometasone 200 MCG/Formoterol 5 MCG 120 PUFF INHALER INH SCH ×2 (07:12→20:06)
[2020-10-05] MEDS: Saccharomyces boulardii 250 MG CAP PO SCH (08:41)
[2020-10-05] MEDS: Benzonatate 100 MG CAP PO SCH ×3 (08:42→21:07)
[2020-10-05] MEDS: Zinc Sulfate 220 MG CAP PO SCH (08:42)
[2020-10-05] MEDS: Ascorbic Acid 500 mg Chewable Tablet PO SCH (08:42)
[2020-10-05] MEDS: Enoxaparin Sodium 60 MG/0.6 ML SYRINGE SC SCH ×2 (08:44→21:08)
[2020-10-05] MEDS: Lantus 1000 UNITS/10 ML VIAL SC SCH ×2 (08:44→21:07)
[2020-10-05] MEDS: Nystatin 500,000 UNITS/5 ML UDCUP SSW SCH ×4 (08:44→21:07)
[2020-10-05] MEDS: Guaifenesin DM 100-10/5 ML UDCUP PO PRN ×2 (08:50→15:05)
[2020-10-05] MEDS: Dexamethasone 4 mg/ml Vial SLOW IVP SCH (09:25)
[2020-10-05] MEDS: traMADol HCl 50 MG TAB PO PRN ×3 (11:16→23:12)
[2020-10-05] MEDS: Cyclobenzaprine 10 MG TAB PO PRN (13:11)
[2020-10-05] MEDS: guaiFENesin/Codeine 200 mg/20 mg 10 ml Cup PO PRN ×2 (16:00→23:11)
[2020-10-05] MEDS: Atorvastatin Calcium 20 MG TAB PO SCH (21:07)
[2020-10-06] MEDS: Acetaminophen 500 MG TAB PO SCH ×4 (03:39→21:01)
[2020-10-06] MEDS: HumaLOG 300 UNITS/3 ML VIAL SC PRN ×4 (03:45→23:29)
[2020-10-06] MEDS: traMADol HCl 50 MG TAB PO PRN ×2 (05:33→23:27)
[2020-10-06] MEDS: Piperacillin/Tazobactam 3.375 GM in Sodium Chloride 0.9% 100 ML IVPB SCH ×3 (05:34→21:03)
[2020-10-06] MEDS: guaiFENesin/Codeine 200 mg/20 mg 10 ml Cup PO PRN ×2 (05:34→22:16)
[2020-10-06] MEDS: Mometasone 200 MCG/Formoterol 5 MCG 120 PUFF INHALER INH SCH ×2 (06:40→18:53)
[2020-10-06] MEDS: Saccharomyces boulardii 250 MG CAP PO SCH (08:51)
[2020-10-06] MEDS: Zinc Sulfate 220 MG CAP PO SCH (08:52)
[2020-10-06] MEDS: Benzonatate 100 MG CAP PO SCH ×3 (08:52→21:02)
[2020-10-06] MEDS: Ascorbic Acid 500 mg Chewable Tablet PO SCH (08:52)
[2020-10-06] MEDS: Nystatin 500,000 UNITS/5 ML UDCUP SSW SCH ×4 (08:52→21:03)
[2020-10-06] MEDS: Dexamethasone 4 mg/ml Vial SLOW IVP SCH (08:58)
[2020-10-06] MEDS: Lantus 1000 UNITS/10 ML VIAL SC SCH (09:04)
[2020-10-06] MEDS: Enoxaparin Sodium 60 MG/0.6 ML SYRINGE SC SCH ×2 (09:29→21:02)
[2020-10-06] MEDS ORDERED: Vancomycin 1 GM in Premix Bag 1 BAG IVPB SCH (14:58)
[2020-10-06] MEDS ORDERED: Lidocaine 2% Jelly 5 ML TUBE ONE (15:15)
[2020-10-06] MEDS ORDERED: Fentanyl 100 MCG/2 ML VIAL ONE ×2 (15:15→17:53)
[2020-10-06] MEDS ORDERED: PROPOFOL 200 MG/20 ML VIAL ONE (16:20)
[2020-10-06] MEDS ORDERED: Succinylcholine 200 MG/10 ml SYRINGE FS ONE (16:20)
[2020-10-06] MEDS ORDERED: Lidocaine 1% PF 5 ML VIAL ONE (16:20)
[2020-10-06] MEDS ORDERED: Rocuronium Bromide 10 MG/ML (10ML VIAL) ONE (16:20)
[2020-10-06] MEDS ORDERED: Glycopyrrolate 0.2 MG/ML 5 ML SYRINGE ONE (16:20)
[2020-10-06] MEDS ORDERED: Dexamethasone 20 MG/5 ML VIAL ONE (16:20)
[2020-10-06] MEDS ORDERED: Ondansetron PF 4 MG/2 ML Vial ONE (16:20)
[2020-10-06] MEDS ORDERED: Promethazine HCl 25 MG/ML VIAL IVPB PRN (17:23)
[2020-10-06] MEDS ORDERED: Ondansetron HCl/PF 4 MG/2 ML Vial IVP PRN (17:23)
[2020-10-06] MEDS ORDERED: Promethazine HCl 25 MG/ML VIAL IM PRN (17:23)
[2020-10-06] MEDS: Atorvastatin Calcium 20 MG TAB PO SCH (21:02)
[2020-10-06] MEDS: Cyclobenzaprine 10 MG TAB PO PRN (21:04)
[2020-10-07] MEDS: Acetaminophen 500 MG TAB PO SCH ×4 (01:41→20:25)
[2020-10-07] MEDS: guaiFENesin/Codeine 200 mg/20 mg 10 ml Cup PO PRN (04:14)
[2020-10-07] MEDS: HumaLOG 300 UNITS/3 ML VIAL SC PRN ×4 (04:14→20:46)
[2020-10-07] MEDS: Piperacillin/Tazobactam 3.375 GM in Sodium Chloride 0.9% 100 ML IVPB SCH ×3 (05:16→20:23)
[2020-10-07] MEDS ORDERED: VANCOMYCIN 2 GRAM/400 ML BAG 2 GM in Premix Bag 1 BAG IVPB SCH (06:00)
[2020-10-07 07:29] LABS: #Lymphocytes 1.3 thou/uL (1.20-3.40); #Monocytes 0.4 thou/uL (0.11-0.59); #Neutrophils 9.2 thou/uL (1.40-6.50); %Eosinophils 0.4 % (0.0-10.0); %Lymphocytes 11.5 % (21.0-51.0); %Neutrophils 84.1 % (42.0-75.0); Hemoglobin 12.6 g/dL (14.0-18.0); Mean Corpuscular HGB CONC 31.9 g/dL (32.0-36.0); Mean Corpuscular Hemoglobin 29.9 pg (27.0-31.0); Mean Corpuscular Volume 93.6 fL (78.0-98.0); Mean Platelet Volume 9.3 fL (7.4-10.4); Platelet Count 159 thou/uL (130-400); RBC Distribution Width 14.4 % (11.5-14.5); Red Blood Cell (RBC) Count 4.22 mill/uL (4.70-6.10); White Blood Cell (WBC) Count 10.9 thou/uL (4.8-10.8)
[2020-10-07] MEDS: Mometasone 200 MCG/Formoterol 5 MCG 120 PUFF INHALER INH SCH ×2 (07:37→20:08)
[2020-10-07 07:42] LABS: Anion Gap 11 mmol/L (10-20); BUN (Urea Nitrogen) 11 mg/dL (8.4-25.7); Calc. Creatinine Clearance 190 mL/min (70-130); Calcium 8.5 mg/dL (7.8-10.44); Carbon Dioxide 27 mmol/L (22-29); Chloride 100 mmol/L (98-107); Glucose 266 mg/dL (70-105); Magnesium 1.8 mg/dL (1.6-2.6); Phosphorus 2.3 mg/dL (2.3-4.7); Sodium 134 mmol/L (136-145)
[2020-10-07] MEDS: Enoxaparin Sodium 60 MG/0.6 ML SYRINGE SC SCH ×2 (09:35→20:27)
[2020-10-07] MEDS: Ascorbic Acid 500 mg Chewable Tablet PO SCH (09:37)
[2020-10-07] MEDS: Benzonatate 100 MG CAP PO SCH ×3 (09:37→20:26)
[2020-10-07] MEDS: traMADol HCl 50 MG TAB PO PRN ×2 (09:38→18:16)
[2020-10-07] MEDS: Zinc Sulfate 220 MG CAP PO SCH (09:39)
[2020-10-07] MEDS: Nystatin 500,000 UNITS/5 ML UDCUP SSW SCH ×4 (09:39→20:27)
[2020-10-07] MEDS: Saccharomyces boulardii 250 MG CAP PO SCH (09:39)
[2020-10-07] MEDS: Dexamethasone 4 mg/ml Vial SLOW IVP SCH (09:41)
[2020-10-07] MEDS: Lantus 1000 UNITS/10 ML VIAL SC SCH ×2 (09:42→20:48)
[2020-10-07] MEDS: Acyclovir 400 mg Tablet PO SCH (20:26)
[2020-10-07] MEDS: Atorvastatin Calcium 20 MG TAB PO SCH (20:26)
[2020-10-08] MEDS: HumaLOG 300 UNITS/3 ML VIAL SC PRN ×2 (00:16→04:54)
[2020-10-08] MEDS: Acetaminophen 500 MG TAB PO SCH ×4 (02:00→19:40)
[2020-10-08 04:00] LABS: SARS-CoV-2 NAA Rapid Test Not Detected (NotDetected)
[2020-10-08] MEDS: Piperacillin/Tazobactam 3.375 GM in Sodium Chloride 0.9% 100 ML IVPB SCH ×3 (04:48→20:57)
[2020-10-08] MEDS: Mometasone 200 MCG/Formoterol 5 MCG 120 PUFF INHALER INH SCH ×2 (06:54→19:34)
[2020-10-08] MEDS: Ascorbic Acid 500 mg Chewable Tablet PO SCH (10:43)
[2020-10-08] MEDS: Enoxaparin Sodium 60 MG/0.6 ML SYRINGE SC SCH ×2 (10:43→20:57)
[2020-10-08] MEDS: Saccharomyces boulardii 250 MG CAP PO SCH (10:44)
[2020-10-08] MEDS: Nystatin 500,000 UNITS/5 ML UDCUP SSW SCH ×4 (10:44→20:56)
[2020-10-08] MEDS: Benzonatate 100 MG CAP PO SCH ×3 (10:44→20:56)
[2020-10-08] MEDS: Acyclovir 400 mg Tablet PO SCH ×3 (10:52→20:56)
[2020-10-08] MEDS: traMADol HCl 50 MG TAB PO PRN ×2 (10:52→19:40)
[2020-10-08] MEDS: guaiFENesin/Codeine 200 mg/20 mg 10 ml Cup PO PRN ×2 (11:08→23:18)
[2020-10-08] MEDS: Zinc Sulfate 220 MG CAP PO SCH (12:37)
[2020-10-08] MEDS: Lantus 1000 UNITS/10 ML VIAL SC SCH ×2 (12:37→20:57)
[2020-10-08] MEDS ORDERED: Fentanyl 100 MCG/2 ML VIAL ONE (16:50)
[2020-10-08] MEDS ORDERED: Famotidine/PF 20 mg/2ml Vial ONE (16:50)
[2020-10-08] MEDS ORDERED: Rocuronium Bromide 10 MG/ML (10ML VIAL) ONE (17:21)
[2020-10-08] MEDS ORDERED: Ketorolac Tromethamine 30 MG/ML VIAL ONE (17:21)
[2020-10-08] MEDS ORDERED: Glycopyrrolate 0.2 MG/ML 5 ML SYRINGE ONE (17:21)
[2020-10-08] MEDS ORDERED: Lidocaine 1% PF 5 ML VIAL ONE (17:21)
[2020-10-08] MEDS ORDERED: PROPOFOL 200 MG/20 ML VIAL ONE (17:21)
[2020-10-08] MEDS ORDERED: Ondansetron PF 4 MG/2 ML Vial ONE (17:21)
[2020-10-08] MEDS ORDERED: Neomycin-Polymyxin 1 ML AMP ONE ×2 (17:31→17:33)
[2020-10-08] MEDS ORDERED: Promethazine HCl 25 MG/ML VIAL IM PRN (18:06)
[2020-10-08] MEDS ORDERED: HYDROmorphone 2 MG/ML VIAL SLOW IVP PRN (18:06)
[2020-10-08] MEDS ORDERED: Promethazine HCl 25 MG/ML VIAL IVPB PRN (18:06)
[2020-10-08] MEDS ORDERED: Ondansetron HCl/PF 4 MG/2 ML Vial IVP PRN (18:06)
[2020-10-08] MEDS ORDERED: Meperidine HCl/PF 25 MG/ML VIAL SLOW IVP PRN (18:06)
[2020-10-08] MEDS: Atorvastatin Calcium 20 MG TAB PO SCH (20:56)
[2020-10-09] MEDS: HumaLOG 300 UNITS/3 ML VIAL SC PRN ×4 (00:39→17:48)
[2020-10-09] MEDS: Acetaminophen 500 MG TAB PO SCH ×2 (00:39→08:14)
[2020-10-09] MEDS: Piperacillin/Tazobactam 3.375 GM in Sodium Chloride 0.9% 100 ML IVPB SCH (05:39)
[2020-10-09] MEDS: traMADol HCl 50 MG TAB PO PRN ×2 (05:48→15:23)
[2020-10-09 06:01] LABS: #Eosinphils 0.3 thou/uL (0.0-0.7); #Lymphocytes 1.8 thou/uL (1.20-3.40); #Monocytes 0.4 thou/uL (0.11-0.59); #Neutrophils 9.4 thou/uL (1.40-6.50); %Basophils 0.2 % (0.0-1.0); %Eosinophils 2.4 % (0.0-10.0); %Lymphocytes 15.1 % (21.0-51.0); %Monocytes 3.2 % (0.0-10.0); %Neutrophils 79.2 % (42.0-75.0); Hemoglobin 12.8 g/dL (14.0-18.0); Mean Corpuscular Hemoglobin 29.1 pg (27.0-31.0); Mean Corpuscular Volume 93.9 fL (78.0-98.0); Mean Platelet Volume 8.3 fL (7.4-10.4); Platelet Count 233 thou/uL (130-400); RBC Distribution Width 14.3 % (11.5-14.5); Red Blood Cell (RBC) Count 4.42 mill/uL (4.70-6.10); White Blood Cell (WBC) Count 11.8 thou/uL (4.8-10.8)
[2020-10-09] MEDS: Enoxaparin Sodium 60 MG/0.6 ML SYRINGE SC SCH ×2 (08:13→20:47)
[2020-10-09] MEDS: Zinc Sulfate 220 MG CAP PO SCH (08:13)
[2020-10-09] MEDS: Ascorbic Acid 500 mg Chewable Tablet PO SCH (08:13)
[2020-10-09] MEDS: Benzonatate 100 MG CAP PO SCH ×3 (08:13→20:48)
[2020-10-09] MEDS: Nystatin 500,000 UNITS/5 ML UDCUP SSW SCH ×4 (08:13→20:47)
[2020-10-09] MEDS: Saccharomyces boulardii 250 MG CAP PO SCH (08:13)
[2020-10-09] MEDS: guaiFENesin/Codeine 200 mg/20 mg 10 ml Cup PO PRN ×3 (08:17→21:53)
[2020-10-09] MEDS: Acyclovir 400 mg Tablet PO SCH ×3 (08:17→21:53)
[2020-10-09] MEDS: Lantus 1000 UNITS/10 ML VIAL SC SCH ×2 (08:19→20:48)
[2020-10-09] MEDS ORDERED: Acetaminophen 500 MG TAB PO SCH ×2 (09:02→14:00)
[2020-10-09] MEDS: HYDROcodone/Acetaminophen 7.5/325 mg Tablet PO PRN ×2 (10:01→20:49)
[2020-10-09] MEDS: Cyclobenzaprine 10 MG TAB PO PRN (10:01)
[2020-10-09] MEDS: Mometasone 200 MCG/Formoterol 5 MCG 120 PUFF INHALER INH SCH ×2 (10:23→23:02)
[2020-10-09] MEDS: cefTRIAXone\\ROCEPHIN 2 GM in Sodium Chloride 0.9% 100 ML IVPB SCH (11:24)
[2020-10-09] MEDS: metroNIDAZOLE 500 MG TAB PO SCH ×2 (14:14→20:48)
[2020-10-09] MEDS: Acetaminophen 325 MG TAB PO SCH ×2 (14:15→20:48)
[2020-10-09] MEDS: Atorvastatin Calcium 20 MG TAB PO SCH (20:49)
[2020-10-09] MEDS ORDERED: Famotidine/PF 20 mg/2ml Vial ONE (22:01)
[2020-10-10] MEDS: Acetaminophen 325 MG TAB PO SCH ×4 (01:54→20:33)
[2020-10-10] MEDS: traMADol HCl 50 MG TAB PO PRN ×3 (01:55→20:32)
[2020-10-10 05:13] VITALS: BMI 42.3
[2020-10-10 05:44] LABS: #Basophils 0.1 thou/uL (0.0-0.2); #Eosinphils 0.4 thou/uL (0.0-0.7); #Lymphocytes 2.4 thou/uL (1.20-3.40); #Monocytes 0.5 thou/uL (0.11-0.59); #Neutrophils 10.4 thou/uL (1.40-6.50); %Basophils 0.5 % (0.0-1.0); %Eosinophils 3.1 % (0.0-10.0); %Lymphocytes 17.1 % (21.0-51.0); %Monocytes 3.5 % (0.0-10.0); %Neutrophils 75.7 % (42.0-75.0); Hemoglobin 13.1 g/dL (14.0-18.0); Mean Corpuscular Volume 93.6 fL (78.0-98.0); Platelet Count 270 thou/uL (130-400); RBC Distribution Width 14.4 % (11.5-14.5); Red Blood Cell (RBC) Count 4.35 mill/uL (4.70-6.10); White Blood Cell (WBC) Count 13.7 thou/uL (4.8-10.8)
[2020-10-10 06:16] LABS: ALT (SGPT) 30 U/L (8-55); AST (SGOT) 18 U/L (5-34); Albumin 2.3 g/dL (3.5-5.0); Alkaline Phosphatase 165 U/L (40-110); Anion Gap 7 mmol/L (10-20); BUN (Urea Nitrogen) 11 mg/dL (8.4-25.7); Bilirubin, Total 0.5 mg/dL (0.2-1.2); Calc. Creatinine Clearance 215 mL/min (70-130); Calcium 8.1 mg/dL (7.8-10.44); Carbon Dioxide 28 mmol/L (22-29); Chloride 97 mmol/L (98-107); Globulin 3.9 g/dL (2.4-3.5); Glucose 118 mg/dL (70-105); Potassium 3.4 mmol/L (3.5-5.1); Protein, Total 6.2 g/dL (6.0-8.3); Sodium 129 mmol/L (136-145)
[2020-10-10] MEDS: Mometasone 200 MCG/Formoterol 5 MCG 120 PUFF INHALER INH SCH ×2 (06:52→19:23)
[2020-10-10] MEDS ORDERED: Fentanyl 100 MCG/2 ML VIAL ONE (08:15)
[2020-10-10] MEDS ORDERED: Potassium Chloride 20 MEQ TAB PO SCH (08:30)
[2020-10-10] MEDS ORDERED: PROPOFOL 200 MG/20 ML VIAL ONE (09:25)
[2020-10-10] MEDS ORDERED: Lidocaine 1% PF 5 ML VIAL ONE (09:25)
[2020-10-10] MEDS ORDERED: Dexamethasone 20 MG/5 ML VIAL ONE (09:25)
[2020-10-10] MEDS ORDERED: Rocuronium Bromide 10 MG/ML (10ML VIAL) ONE (09:25)
[2020-10-10] MEDS ORDERED: Glycopyrrolate 0.2 MG/ML 5 ML SYRINGE ONE (09:25)
[2020-10-10] MEDS ORDERED: Ondansetron PF 4 MG/2 ML Vial ONE (09:25)
[2020-10-10] MEDS ORDERED: Promethazine HCl 25 MG/ML VIAL IM PRN (10:09)
[2020-10-10] MEDS ORDERED: Promethazine HCl 25 MG/ML VIAL IVPB PRN (10:09)
[2020-10-10] MEDS ORDERED: Ondansetron HCl/PF 4 MG/2 ML Vial IVP PRN (10:09)
[2020-10-10] MEDS: Acyclovir 400 mg Tablet PO SCH ×3 (10:28→20:32)
[2020-10-10] MEDS: Benzonatate 100 MG CAP PO SCH ×3 (10:28→20:33)
[2020-10-10] MEDS: Enoxaparin Sodium 60 MG/0.6 ML SYRINGE SC SCH ×2 (10:28→20:32)
[2020-10-10] MEDS: metroNIDAZOLE 500 MG TAB PO SCH ×3 (10:29→20:32)
[2020-10-10] MEDS: Nystatin 500,000 UNITS/5 ML UDCUP SSW SCH ×4 (10:29→20:32)
[2020-10-10] MEDS: HYDROcodone/Acetaminophen 7.5/325 mg Tablet PO SCH ×4 (10:30→23:45)
[2020-10-10] MEDS: Lantus 1000 UNITS/10 ML VIAL SC SCH ×2 (13:02→21:32)
[2020-10-10] MEDS: Zinc Sulfate 220 MG CAP PO SCH (13:02)
[2020-10-10] MEDS: Saccharomyces boulardii 250 MG CAP PO SCH (13:02)
[2020-10-10] MEDS: Ascorbic Acid 500 mg Chewable Tablet PO SCH (13:02)
[2020-10-10] MEDS: Sodium Chloride 0.9% 1,000 ML IV SCH ×2 (13:03→18:48)
[2020-10-10] MEDS: guaiFENesin/Codeine 200 mg/20 mg 10 ml Cup PO PRN ×2 (13:08→19:18)
[2020-10-10] MEDS: cefTRIAXone\\ROCEPHIN 2 GM in Sodium Chloride 0.9% 100 ML IVPB SCH (14:37)
[2020-10-10] MEDS: HumaLOG 300 UNITS/3 ML VIAL SC PRN ×2 (17:22→21:34)
[2020-10-10] MEDS: Atorvastatin Calcium 20 MG TAB PO SCH (20:32)
[2020-10-11] MEDS: Acetaminophen 325 MG TAB PO SCH ×4 (02:57→20:13)
[2020-10-11] MEDS: D5 1/2 NS w/20 mEq KCL 1,000 ML IV SCH ×3 (04:40→18:30)
[2020-10-11 05:47] LABS: #Eosinphils 0.1 thou/uL (0.0-0.7); #Lymphocytes 1.3 thou/uL (1.20-3.40); #Monocytes 0.4 thou/uL (0.11-0.59); #Neutrophils 6.7 thou/uL (1.40-6.50); %Basophils 0.4 % (0.0-1.0); %Eosinophils 1.2 % (0.0-10.0); %Lymphocytes 14.9 % (21.0-51.0); %Neutrophils 78.6 % (42.0-75.0); Hemoglobin 11.6 g/dL (14.0-18.0); Mean Corpuscular HGB CONC 33.3 g/dL (32.0-36.0); Mean Corpuscular Hemoglobin 31.1 pg (27.0-31.0); Mean Corpuscular Volume 93.4 fL (78.0-98.0); Platelet Count 281 thou/uL (130-400); RBC Distribution Width 14.1 % (11.5-14.5); Red Blood Cell (RBC) Count 3.72 mill/uL (4.70-6.10); White Blood Cell (WBC) Count 8.6 thou/uL (4.8-10.8)
[2020-10-11] MEDS: HYDROcodone/Acetaminophen 7.5/325 mg Tablet PO SCH ×4 (05:47→20:12)
[2020-10-11] MEDS: Sodium Chloride 0.9% 1,000 ML IV SCH ×2 (05:49→18:30)
[2020-10-11 06:06] LABS: ALT (SGPT) 25 U/L (8-55); AST (SGOT) 11 U/L (5-34); Albumin 2.3 g/dL (3.5-5.0); Alkaline Phosphatase 172 U/L (40-110); Anion Gap 7 mmol/L (10-20); BUN (Urea Nitrogen) 10 mg/dL (8.4-25.7); Bilirubin, Total 0.2 mg/dL (0.2-1.2); Calc. Creatinine Clearance 215 mL/min (70-130); Calcium 8.1 mg/dL (7.8-10.44); Carbon Dioxide 28 mmol/L (22-29); Chloride 101 mmol/L (98-107); Globulin 3.6 g/dL (2.4-3.5); Glucose 274 mg/dL (70-105); Potassium 4.1 mmol/L (3.5-5.1); Protein, Total 5.9 g/dL (6.0-8.3); Sodium 132 mmol/L (136-145)
[2020-10-11] MEDS: HumaLOG 300 UNITS/3 ML VIAL SC PRN ×4 (06:31→20:14)
[2020-10-11] MEDS: Mometasone 200 MCG/Formoterol 5 MCG 120 PUFF INHALER INH SCH ×2 (07:08→18:40)
[2020-10-11] MEDS: Zinc Sulfate 220 MG CAP PO SCH (09:57)
[2020-10-11] MEDS: Acyclovir 400 mg Tablet PO SCH ×3 (09:57→20:39)
[2020-10-11] MEDS: Benzonatate 100 MG CAP PO SCH ×3 (09:57→20:12)
[2020-10-11] MEDS: Saccharomyces boulardii 250 MG CAP PO SCH (09:57)
[2020-10-11] MEDS: traMADol HCl 50 MG TAB PO PRN (09:58)
[2020-10-11] MEDS: metroNIDAZOLE 500 MG TAB PO SCH ×3 (09:59→20:12)
[2020-10-11] MEDS: Lantus 1000 UNITS/10 ML VIAL SC SCH ×2 (09:59→20:13)
[2020-10-11] MEDS: Ascorbic Acid 500 mg Chewable Tablet PO SCH (10:00)
[2020-10-11] MEDS: Nystatin 500,000 UNITS/5 ML UDCUP SSW SCH ×4 (10:00→20:15)
[2020-10-11] MEDS: Enoxaparin Sodium 60 MG/0.6 ML SYRINGE SC SCH ×2 (10:00→20:15)
[2020-10-11] MEDS: cefTRIAXone\\ROCEPHIN 2 GM in Sodium Chloride 0.9% 100 ML IVPB SCH (12:52)
[2020-10-11] MEDS: Atorvastatin Calcium 20 MG TAB PO SCH (20:12)
[2020-10-11] MEDS: Guaifenesin DM 100-10/5 ML UDCUP PO PRN (20:25)
[2020-10-11] MEDS: guaiFENesin/Codeine 200 mg/20 mg 10 ml Cup PO PRN (21:10)
[2020-10-12] MEDS: Acetaminophen 325 MG TAB PO SCH ×4 (01:13→20:43)
[2020-10-12] MEDS: D5 1/2 NS w/20 mEq KCL 1,000 ML IV SCH ×3 (01:13→15:50)
[2020-10-12] MEDS: HYDROcodone/Acetaminophen 7.5/325 mg Tablet PO SCH ×6 (01:13→23:55)
[2020-10-12] MEDS: Sodium Chloride 0.9% 1,000 ML IV SCH ×3 (02:25→23:57)
[2020-10-12] MEDS: traMADol HCl 50 MG TAB PO PRN ×2 (04:17→21:47)
[2020-10-12 05:09] LABS: #Eosinphils 0.3 thou/uL (0.0-0.7); #Lymphocytes 1.4 thou/uL (1.20-3.40); #Monocytes 0.5 thou/uL (0.11-0.59); #Neutrophils 5.9 thou/uL (1.40-6.50); %Basophils 0.1 % (0.0-1.0); %Eosinophils 3.9 % (0.0-10.0); %Monocytes 6.3 % (0.0-10.0); %Neutrophils 72.7 % (42.0-75.0); Hemoglobin 12.1 g/dL (14.0-18.0); Mean Corpuscular HGB CONC 33.5 g/dL (32.0-36.0); Mean Corpuscular Hemoglobin 31.4 pg (27.0-31.0); Mean Corpuscular Volume 93.6 fL (78.0-98.0); Mean Platelet Volume 7.6 fL (7.4-10.4); Platelet Count 325 thou/uL (130-400); RBC Distribution Width 14.5 % (11.5-14.5); Red Blood Cell (RBC) Count 3.87 mill/uL (4.70-6.10); White Blood Cell (WBC) Count 8.1 thou/uL (4.8-10.8)
[2020-10-12 05:29] LABS: ALT (SGPT) 24 U/L (8-55); AST (SGOT) 15 U/L (5-34); Albumin 2.5 g/dL (3.5-5.0); Alkaline Phosphatase 155 U/L (40-110); Anion Gap 10 mmol/L (10-20); BUN (Urea Nitrogen) 6 mg/dL (8.4-25.7); Bilirubin, Total 0.3 mg/dL (0.2-1.2); Calc. Creatinine Clearance 218 mL/min (70-130); Calcium 8.2 mg/dL (7.8-10.44); Carbon Dioxide 29 mmol/L (22-29); Chloride 98 mmol/L (98-107); Globulin 3.6 g/dL (2.4-3.5); Glucose 153 mg/dL (70-105); Magnesium 1.8 mg/dL (1.6-2.6); Phosphorus 2.3 mg/dL (2.3-4.7); Potassium 3.9 mmol/L (3.5-5.1); Protein, Total 6.1 g/dL (6.0-8.3); Sodium 133 mmol/L (136-145)
[2020-10-12] MEDS: Mometasone 200 MCG/Formoterol 5 MCG 120 PUFF INHALER INH SCH ×2 (07:00→19:21)
[2020-10-12] MEDS: metroNIDAZOLE 500 MG TAB PO SCH ×3 (08:12→20:39)
[2020-10-12] MEDS: Nystatin 500,000 UNITS/5 ML UDCUP SSW SCH ×4 (08:12→20:44)
[2020-10-12] MEDS: Lantus 1000 UNITS/10 ML VIAL SC SCH ×2 (08:12→20:41)
[2020-10-12] MEDS: Enoxaparin Sodium 60 MG/0.6 ML SYRINGE SC SCH ×2 (08:12→20:40)
[2020-10-12] MEDS: Benzonatate 100 MG CAP PO SCH ×3 (08:12→20:39)
[2020-10-12] MEDS: Ascorbic Acid 500 mg Chewable Tablet PO SCH (08:12)
[2020-10-12] MEDS: Acyclovir 400 mg Tablet PO SCH ×3 (08:12→21:45)
[2020-10-12] MEDS: Saccharomyces boulardii 250 MG CAP PO SCH (08:12)
[2020-10-12] MEDS: Zinc Sulfate 220 MG CAP PO SCH (08:13)
[2020-10-12] MEDS: guaiFENesin/Codeine 200 mg/20 mg 10 ml Cup PO PRN ×2 (08:48→21:45)
[2020-10-12] MEDS: cefTRIAXone\\ROCEPHIN 2 GM in Sodium Chloride 0.9% 100 ML IVPB SCH (11:40)
[2020-10-12] MEDS ORDERED: Fentanyl 100 MCG/2 ML VIAL ONE ×2 (13:37→15:31)
[2020-10-12] MEDS ORDERED: EPINEPHrine 1 MG/ML AMP ONE (15:01)
[2020-10-12] MEDS ORDERED: Ophthalmic Irrigation Solution 0 ML ONE (15:01)
[2020-10-12] MEDS ORDERED: Bupivacaine 0.25% HCL 30 ML VIAL ONE (15:01)
[2020-10-12] MEDS ORDERED: Bacitracin Zinc Ointment 30 gm TUBE ONE (15:01)
[2020-10-12] MEDS ORDERED: HYDROmorphone 0.5 MG/0.5 ML SYRINGE ONE (15:44)
[2020-10-12] MEDS ORDERED: Lidocaine 1% PF 5 ML VIAL ONE (15:56)
[2020-10-12] MEDS ORDERED: PROPOFOL 200 MG/20 ML VIAL ONE (15:56)
[2020-10-12] MEDS ORDERED: Ondansetron PF 4 MG/2 ML Vial ONE (15:56)
[2020-10-12] MEDS ORDERED: Dexamethasone 20 MG/5 ML VIAL ONE (15:56)
[2020-10-12] MEDS ORDERED: HYDROmorphone 2 MG/ML VIAL SLOW IVP PRN (17:07)
[2020-10-12] MEDS ORDERED: PACU-Morphine 4MG/ML VIAL SLOW IVP PRN (17:07)
[2020-10-12] MEDS ORDERED: Promethazine HCl 25 MG/ML VIAL IM PRN (17:07)
[2020-10-12] MEDS ORDERED: Promethazine HCl 25 MG/ML VIAL IVPB PRN (17:07)
[2020-10-12] MEDS ORDERED: Ondansetron HCl/PF 4 MG/2 ML Vial IVP PRN (17:07)
[2020-10-12] MEDS: Atorvastatin Calcium 20 MG TAB PO SCH (20:38)
[2020-10-12] MEDS: HumaLOG 300 UNITS/3 ML VIAL SC PRN (20:41)
[2020-10-13] MEDS: HumaLOG 300 UNITS/3 ML VIAL SC PRN ×4 (00:01→17:06)
[2020-10-13] MEDS: D5 1/2 NS w/20 mEq KCL 1,000 ML IV SCH ×3 (00:22→15:28)
[2020-10-13] MEDS: Acetaminophen 325 MG TAB PO SCH ×4 (02:18→21:28)
[2020-10-13] MEDS: guaiFENesin/Codeine 200 mg/20 mg 10 ml Cup PO PRN ×2 (02:37→21:32)
[2020-10-13] MEDS: HYDROcodone/Acetaminophen 7.5/325 mg Tablet PO SCH ×3 (05:45→17:04)
[2020-10-13] MEDS: Sodium Chloride 0.9% 1,000 ML IV SCH ×3 (07:26→21:33)
[2020-10-13] MEDS: Benzonatate 100 MG CAP PO SCH ×3 (08:32→21:30)
[2020-10-13] MEDS: Saccharomyces boulardii 250 MG CAP PO SCH (08:32)
[2020-10-13] MEDS: Ascorbic Acid 500 mg Chewable Tablet PO SCH (08:32)
[2020-10-13] MEDS: Zinc Sulfate 220 MG CAP PO SCH (08:32)
[2020-10-13] MEDS: Enoxaparin Sodium 60 MG/0.6 ML SYRINGE SC SCH ×2 (08:32→21:30)
[2020-10-13] MEDS: metroNIDAZOLE 500 MG TAB PO SCH ×3 (08:32→21:30)
[2020-10-13] MEDS: Acyclovir 400 mg Tablet PO SCH ×3 (08:32→21:29)
[2020-10-13] MEDS: Nystatin 500,000 UNITS/5 ML UDCUP SSW SCH ×4 (08:33→21:31)
[2020-10-13] MEDS: Lantus 1000 UNITS/10 ML VIAL SC SCH ×2 (08:34→21:38)
[2020-10-13] MEDS: Mometasone 200 MCG/Formoterol 5 MCG 120 PUFF INHALER INH SCH ×2 (09:40→18:46)
[2020-10-13] MEDS: traMADol HCl 50 MG TAB PO PRN (10:32)
[2020-10-13] MEDS: cefTRIAXone\\ROCEPHIN 2 GM in Sodium Chloride 0.9% 100 ML IVPB SCH (10:33)
[2020-10-13] MEDS: Atorvastatin Calcium 20 MG TAB PO SCH (21:29)
[2020-10-14] MEDS: HYDROcodone/Acetaminophen 7.5/325 mg Tablet PO SCH ×4 (00:07→17:53)
[2020-10-14] MEDS: Acetaminophen 325 MG TAB PO SCH ×4 (02:37→20:08)
[2020-10-14] MEDS: Cyclobenzaprine 10 MG TAB PO PRN (05:29)
[2020-10-14] MEDS ORDERED: HYDROmorphone 0.5 MG/0.5 ML SYRINGE SLOW IVP SCH (08:00)
[2020-10-14] MEDS: Ascorbic Acid 500 mg Chewable Tablet PO SCH (08:03)
[2020-10-14] MEDS: Acyclovir 400 mg Tablet PO SCH ×2 (08:03→14:00)
[2020-10-14] MEDS: Zinc Sulfate 220 MG CAP PO SCH (08:03)
[2020-10-14] MEDS: metroNIDAZOLE 500 MG TAB PO SCH ×3 (08:03→20:08)
[2020-10-14] MEDS: Saccharomyces boulardii 250 MG CAP PO SCH (08:03)
[2020-10-14] MEDS: Nystatin 500,000 UNITS/5 ML UDCUP SSW SCH ×4 (08:03→20:12)
[2020-10-14] MEDS: Enoxaparin Sodium 60 MG/0.6 ML SYRINGE SC SCH ×2 (08:03→20:11)
[2020-10-14] MEDS: Benzonatate 100 MG CAP PO SCH ×3 (08:03→20:09)
[2020-10-14] MEDS: Lidocaine 4% Topical Sol 50 ML BOT TOP SCH (08:04)
[2020-10-14] MEDS: traMADol HCl 50 MG TAB PO PRN ×3 (08:15→20:05)
[2020-10-14] MEDS: Lantus 1000 UNITS/10 ML VIAL SC SCH ×2 (08:16→22:07)
[2020-10-14 09:15] LABS: Anion Gap 8 mmol/L (10-20); BUN (Urea Nitrogen) 11 mg/dL (8.4-25.7); Calc. Creatinine Clearance 229 mL/min (70-130); Calcium 8.2 mg/dL (7.8-10.44); Carbon Dioxide 28 mmol/L (22-29); Chloride 102 mmol/L (98-107); Glucose 186 mg/dL (70-105); Sodium 134 mmol/L (136-145)
[2020-10-14] MEDS ORDERED: Lidocaine 1% (PF) 30 ML VIAL ONE (10:01)
[2020-10-14] MEDS: guaiFENesin/Codeine 200 mg/20 mg 10 ml Cup PO PRN ×2 (11:16→17:54)
[2020-10-14] MEDS: cefTRIAXone\\ROCEPHIN 2 GM in Sodium Chloride 0.9% 100 ML IVPB SCH (11:17)
[2020-10-14] MEDS: Sodium Chloride 0.9% 1,000 ML IV SCH (11:24)
[2020-10-14] MEDS: Mometasone 200 MCG/Formoterol 5 MCG 120 PUFF INHALER INH SCH ×2 (11:50→19:46)
[2020-10-14] MEDS ORDERED: Lidocaine 2% PF 100 mg/5 ml Syringe IVP SCH ×2 (12:30)
[2020-10-14] MEDS: HumaLOG 300 UNITS/3 ML VIAL SC PRN (17:55)
[2020-10-14] MEDS: Atorvastatin Calcium 20 MG TAB PO SCH (20:09)
[2020-10-14] MEDS: Guaifenesin DM 100-10/5 ML UDCUP PO PRN (22:13)
[2020-10-15] MEDS: HYDROcodone/Acetaminophen 7.5/325 mg Tablet PO SCH ×5 (00:55→23:41)
[2020-10-15] MEDS: guaiFENesin/Codeine 200 mg/20 mg 10 ml Cup PO PRN ×4 (00:56→21:21)
[2020-10-15] MEDS: Acetaminophen 325 MG TAB PO SCH ×4 (01:53→21:22)
[2020-10-15] MEDS: Cyclobenzaprine 10 MG TAB PO PRN (05:10)
[2020-10-15 05:54] LABS: #Eosinphils 0.4 thou/uL (0.0-0.7); #Lymphocytes 1.8 thou/uL (1.20-3.40); #Monocytes 0.9 thou/uL (0.11-0.59); #Neutrophils 5.3 thou/uL (1.40-6.50); %Basophils 0.2 % (0.0-1.0); %Eosinophils 4.9 % (0.0-10.0); %Lymphocytes 20.8 % (21.0-51.0); %Monocytes 11.2 % (0.0-10.0); Hemoglobin 12.6 g/dL (14.0-18.0); Mean Corpuscular HGB CONC 33.1 g/dL (32.0-36.0); Mean Corpuscular Hemoglobin 30.6 pg (27.0-31.0); Mean Corpuscular Volume 92.4 fL (78.0-98.0); Mean Platelet Volume 7.3 fL (7.4-10.4); Platelet Count 337 thou/uL (130-400); RBC Distribution Width 14.4 % (11.5-14.5); Red Blood Cell (RBC) Count 4.12 mill/uL (4.70-6.10); White Blood Cell (WBC) Count 8.4 thou/uL (4.8-10.8)
[2020-10-15 06:13] LABS: Anion Gap 12 mmol/L (10-20); BUN (Urea Nitrogen) 7 mg/dL (8.4-25.7); Calc. Creatinine Clearance 233 mL/min (70-130); Calcium 8.3 mg/dL (7.8-10.44); Carbon Dioxide 29 mmol/L (22-29); Chloride 95 mmol/L (98-107); Glucose 139 mg/dL (70-105); Potassium 3.6 mmol/L (3.5-5.1); Sodium 132 mmol/L (136-145)
[2020-10-15] MEDS: Mometasone 200 MCG/Formoterol 5 MCG 120 PUFF INHALER INH SCH ×2 (06:26→19:13)
[2020-10-15] MEDS: Nystatin 500,000 UNITS/5 ML UDCUP SSW SCH ×4 (08:52→21:23)
[2020-10-15] MEDS: Ascorbic Acid 500 mg Chewable Tablet PO SCH (08:53)
[2020-10-15] MEDS: Benzonatate 100 MG CAP PO SCH ×3 (08:53→21:23)
[2020-10-15] MEDS: Zinc Sulfate 220 MG CAP PO SCH (08:53)
[2020-10-15] MEDS: Saccharomyces boulardii 250 MG CAP PO SCH (08:53)
[2020-10-15] MEDS: metroNIDAZOLE 500 MG TAB PO SCH ×3 (08:53→21:23)
[2020-10-15] MEDS: Lantus 1000 UNITS/10 ML VIAL SC SCH ×2 (08:54→22:05)
[2020-10-15] MEDS: Enoxaparin Sodium 60 MG/0.6 ML SYRINGE SC SCH ×2 (08:54→21:25)
[2020-10-15] MEDS: Lidocaine 4% Topical Sol 50 ML BOT TOP SCH (08:55)
[2020-10-15] MEDS: traMADol HCl 50 MG TAB PO PRN (09:24)
[2020-10-15] MEDS: cefTRIAXone\\ROCEPHIN 2 GM in Sodium Chloride 0.9% 100 ML IVPB SCH (12:02)
[2020-10-15] MEDS: HumaLOG 300 UNITS/3 ML VIAL SC PRN ×3 (12:03→22:06)
[2020-10-15 17:35] LABS: SARS-CoV-2 PCR by NAA Not Detected (NotDetected)
[2020-10-15] MEDS: Atorvastatin Calcium 20 MG TAB PO SCH (21:23)
[2020-10-16] MEDS: Acetaminophen 325 MG TAB PO SCH ×4 (02:32→20:21)
[2020-10-16 05:17] LABS: #Eosinphils 0.6 thou/uL (0.0-0.7); #Lymphocytes 2.1 thou/uL (1.20-3.40); #Monocytes 0.9 thou/uL (0.11-0.59); #Neutrophils 6.2 thou/uL (1.40-6.50); %Basophils 0.1 % (0.0-1.0); %Eosinophils 5.9 % (0.0-10.0); %Lymphocytes 21.1 % (21.0-51.0); %Monocytes 9.5 % (0.0-10.0); %Neutrophils 63.4 % (42.0-75.0); Hemoglobin 13.6 g/dL (14.0-18.0); Mean Corpuscular HGB CONC 34.1 g/dL (32.0-36.0); Mean Corpuscular Hemoglobin 31.4 pg (27.0-31.0); Mean Corpuscular Volume 92.2 fL (78.0-98.0); Mean Platelet Volume 6.9 fL (7.4-10.4); Platelet Count 322 thou/uL (130-400); RBC Distribution Width 14.4 % (11.5-14.5); Red Blood Cell (RBC) Count 4.32 mill/uL (4.70-6.10); White Blood Cell (WBC) Count 9.7 thou/uL (4.8-10.8)
[2020-10-16] MEDS: HYDROcodone/Acetaminophen 7.5/325 mg Tablet PO SCH ×3 (05:28→17:31)
[2020-10-16] MEDS: guaiFENesin/Codeine 200 mg/20 mg 10 ml Cup PO PRN ×3 (05:28→17:37)
[2020-10-16 05:39] LABS: Anion Gap 9 mmol/L (10-20); BUN (Urea Nitrogen) 6 mg/dL (8.4-25.7); Calc. Creatinine Clearance 211 mL/min (70-130); Calcium 8.7 mg/dL (7.8-10.44); Carbon Dioxide 31 mmol/L (22-29); Chloride 97 mmol/L (98-107); Glucose 126 mg/dL (70-105); Potassium 3.8 mmol/L (3.5-5.1); Sodium 133 mmol/L (136-145)
[2020-10-16] MEDS: Mometasone 200 MCG/Formoterol 5 MCG 120 PUFF INHALER INH SCH ×2 (06:50→19:52)
[2020-10-16] MEDS: Ascorbic Acid 500 mg Chewable Tablet PO SCH (08:25)
[2020-10-16] MEDS: Saccharomyces boulardii 250 MG CAP PO SCH (08:25)
[2020-10-16] MEDS: Benzonatate 100 MG CAP PO SCH ×3 (08:25→20:21)
[2020-10-16] MEDS: Enoxaparin Sodium 60 MG/0.6 ML SYRINGE SC SCH ×2 (08:25→20:20)
[2020-10-16] MEDS: Zinc Sulfate 220 MG CAP PO SCH (08:25)
[2020-10-16] MEDS: Lantus 1000 UNITS/10 ML VIAL SC SCH ×2 (08:26→21:39)
[2020-10-16] MEDS: metroNIDAZOLE 500 MG TAB PO SCH ×3 (08:26→20:21)
[2020-10-16] MEDS: Nystatin 500,000 UNITS/5 ML UDCUP SSW SCH ×4 (08:30→20:23)
[2020-10-16 09:38] LABS: HSV 1 - DNA Positive (Negative); HSV 2 - DNA Negative (Negative)
[2020-10-16] MEDS ORDERED: HYDROmorphone 0.5 MG/0.5 ML SYRINGE SLOW IVP SCH (11:30)
[2020-10-16] MEDS: Lidocaine 4% Topical Sol 50 ML BOT TOP SCH (13:00)
[2020-10-16] MEDS: HumaLOG 300 UNITS/3 ML VIAL SC PRN ×2 (17:32→21:36)
[2020-10-16] MEDS: Ciprofloxacin 500 MG TAB PO SCH (20:21)
[2020-10-16] MEDS: Atorvastatin Calcium 20 MG TAB PO SCH (20:21)
[2020-10-17] MEDS: HYDROcodone/Acetaminophen 7.5/325 mg Tablet PO SCH ×4 (00:33→17:02)
[2020-10-17] MEDS: guaiFENesin/Codeine 200 mg/20 mg 10 ml Cup PO PRN ×3 (00:33→18:35)
[2020-10-17] MEDS: Acetaminophen 325 MG TAB PO SCH ×4 (02:11→21:59)
[2020-10-17] MEDS: Ciprofloxacin 500 MG TAB PO SCH ×2 (05:10→22:00)
[2020-10-17] MEDS: Mometasone 200 MCG/Formoterol 5 MCG 120 PUFF INHALER INH SCH ×2 (06:40→19:40)
[2020-10-17] MEDS: Ascorbic Acid 500 mg Chewable Tablet PO SCH (08:10)
[2020-10-17] MEDS: Enoxaparin Sodium 60 MG/0.6 ML SYRINGE SC SCH ×2 (08:10→22:00)
[2020-10-17] MEDS: Benzonatate 100 MG CAP PO SCH ×3 (08:10→22:00)
[2020-10-17] MEDS: Nystatin 500,000 UNITS/5 ML UDCUP SSW SCH ×4 (08:10→22:01)
[2020-10-17] MEDS: Zinc Sulfate 220 MG CAP PO SCH (08:10)
[2020-10-17] MEDS: Saccharomyces boulardii 250 MG CAP PO SCH (08:10)
[2020-10-17] MEDS: metroNIDAZOLE 500 MG TAB PO SCH ×3 (08:10→22:00)
[2020-10-17] MEDS: Lantus 1000 UNITS/10 ML VIAL SC SCH ×2 (08:11→22:01)
[2020-10-17] MEDS: Lidocaine 4% Topical Sol 50 ML BOT TOP SCH (08:12)
[2020-10-17] MEDS: HumaLOG 300 UNITS/3 ML VIAL SC PRN ×2 (12:38→17:03)
[2020-10-17] MEDS: Atorvastatin Calcium 20 MG TAB PO SCH (21:59)
[2020-10-18] MEDS: guaiFENesin/Codeine 200 mg/20 mg 10 ml Cup PO PRN ×4 (00:29→19:18)
[2020-10-18] MEDS: HYDROcodone/Acetaminophen 7.5/325 mg Tablet PO SCH ×4 (00:29→17:39)
[2020-10-18] MEDS: Acetaminophen 325 MG TAB PO SCH ×4 (02:48→20:38)
[2020-10-18] MEDS: Ciprofloxacin 500 MG TAB PO SCH ×2 (05:58→20:39)
[2020-10-18 07:52] LABS: Anion Gap 11 mmol/L (10-20); BUN (Urea Nitrogen) 8 mg/dL (8.4-25.7); Calc. Creatinine Clearance 229 mL/min (70-130); Calcium 8.7 mg/dL (7.8-10.44); Carbon Dioxide 27 mmol/L (22-29); Chloride 100 mmol/L (98-107); Glucose 114 mg/dL (70-105); Potassium 3.9 mmol/L (3.5-5.1); Sodium 134 mmol/L (136-145)
[2020-10-18] MEDS: Enoxaparin Sodium 60 MG/0.6 ML SYRINGE SC SCH ×2 (08:34→21:50)
[2020-10-18] MEDS: Lantus 1000 UNITS/10 ML VIAL SC SCH ×2 (08:34→21:51)
[2020-10-18] MEDS: Ascorbic Acid 500 mg Chewable Tablet PO SCH (08:35)
[2020-10-18] MEDS: Saccharomyces boulardii 250 MG CAP PO SCH (08:35)
[2020-10-18] MEDS: metroNIDAZOLE 500 MG TAB PO SCH ×3 (08:35→21:50)
[2020-10-18] MEDS: Zinc Sulfate 220 MG CAP PO SCH (08:35)
[2020-10-18] MEDS: Benzonatate 100 MG CAP PO SCH ×3 (08:35→21:50)
[2020-10-18] MEDS: Nystatin 500,000 UNITS/5 ML UDCUP SSW SCH ×4 (09:43→21:51)
[2020-10-18] MEDS ORDERED: HYDROmorphone 0.5 MG/0.5 ML SYRINGE SLOW IVP SCH (10:00)
[2020-10-18] MEDS: Lidocaine 4% Topical Sol 50 ML BOT TOP SCH (10:15)
[2020-10-18] MEDS: Mometasone 200 MCG/Formoterol 5 MCG 120 PUFF INHALER INH SCH ×2 (11:20→18:31)
[2020-10-18] MEDS: HumaLOG 300 UNITS/3 ML VIAL SC PRN ×2 (12:13→17:39)
[2020-10-18] MEDS: Atorvastatin Calcium 20 MG TAB PO SCH (21:50)
[2020-10-19] MEDS: Guaifenesin DM 100-10/5 ML UDCUP PO PRN (01:07)
[2020-10-19] MEDS: guaiFENesin/Codeine 200 mg/20 mg 10 ml Cup PO PRN ×4 (01:12→18:54)
[2020-10-19] MEDS: Acetaminophen 325 MG TAB PO SCH ×4 (02:14→20:13)
[2020-10-19] MEDS: HYDROcodone/Acetaminophen 7.5/325 mg Tablet PO SCH ×5 (06:04→23:53)
[2020-10-19] MEDS: Ciprofloxacin 500 MG TAB PO SCH ×2 (06:04→20:36)
[2020-10-19] MEDS: Mometasone 200 MCG/Formoterol 5 MCG 120 PUFF INHALER INH SCH ×2 (08:55→18:38)
[2020-10-19] MEDS: Ascorbic Acid 500 mg Chewable Tablet PO SCH (09:55)
[2020-10-19] MEDS: Benzonatate 100 MG CAP PO SCH ×3 (09:56→20:36)
[2020-10-19] MEDS: Lantus 1000 UNITS/10 ML VIAL SC SCH ×2 (09:57→20:37)
[2020-10-19] MEDS: metroNIDAZOLE 500 MG TAB PO SCH ×3 (09:57→20:36)
[2020-10-19] MEDS: Enoxaparin Sodium 60 MG/0.6 ML SYRINGE SC SCH ×2 (09:57→20:37)
[2020-10-19] MEDS: Saccharomyces boulardii 250 MG CAP PO SCH (09:58)
[2020-10-19] MEDS: Nystatin 500,000 UNITS/5 ML UDCUP SSW SCH ×3 (09:58→20:37)
[2020-10-19] MEDS: Zinc Sulfate 220 MG CAP PO SCH (09:58)
[2020-10-19] MEDS: Lidocaine 4% Topical Sol 50 ML BOT TOP SCH (18:09)
[2020-10-19] MEDS: traMADol HCl 50 MG TAB PO PRN (20:14)
[2020-10-19] MEDS: Atorvastatin Calcium 20 MG TAB PO SCH (20:36)
[2020-10-20] MEDS: Acetaminophen 325 MG TAB PO SCH ×3 (02:28→20:38)
[2020-10-20] MEDS: Ciprofloxacin 500 MG TAB PO SCH ×2 (06:10→20:38)
[2020-10-20] MEDS: HYDROcodone/Acetaminophen 7.5/325 mg Tablet PO SCH ×3 (06:10→17:37)
[2020-10-20] MEDS: Mometasone 200 MCG/Formoterol 5 MCG 120 PUFF INHALER INH SCH ×2 (07:28→20:32)
[2020-10-20] MEDS: guaiFENesin/Codeine 200 mg/20 mg 10 ml Cup PO PRN ×3 (08:18→17:34)
[2020-10-20] MEDS: Zinc Sulfate 220 MG CAP PO SCH (08:19)
[2020-10-20] MEDS: Enoxaparin Sodium 60 MG/0.6 ML SYRINGE SC SCH ×2 (08:19→20:38)
[2020-10-20] MEDS: Ascorbic Acid 500 mg Chewable Tablet PO SCH (08:19)
[2020-10-20] MEDS: metroNIDAZOLE 500 MG TAB PO SCH ×3 (08:19→20:38)
[2020-10-20] MEDS: Saccharomyces boulardii 250 MG CAP PO SCH (08:19)
[2020-10-20] MEDS: Lantus 1000 UNITS/10 ML VIAL SC SCH ×2 (08:20→21:02)
[2020-10-20] MEDS: Lidocaine 4% Topical Sol 50 ML BOT TOP SCH (18:13)
[2020-10-20] MEDS: Nystatin 500,000 UNITS/5 ML UDCUP SSW SCH ×2 (18:14→20:39)
[2020-10-20] MEDS: Benzonatate 100 MG CAP PO SCH ×2 (18:14→20:38)
[2020-10-20] MEDS: Atorvastatin Calcium 20 MG TAB PO SCH (20:39)
[2020-10-21] MEDS: HYDROcodone/Acetaminophen 7.5/325 mg Tablet PO SCH ×4 (00:08→20:53)
[2020-10-21] MEDS: Acetaminophen 325 MG TAB PO SCH ×4 (01:54→20:53)
[2020-10-21] MEDS: guaiFENesin/Codeine 200 mg/20 mg 10 ml Cup PO PRN ×4 (02:55→20:57)
[2020-10-21] MEDS: Ciprofloxacin 500 MG TAB PO SCH ×2 (05:59→20:57)
[2020-10-21] MEDS: Enoxaparin Sodium 60 MG/0.6 ML SYRINGE SC SCH ×2 (08:23→20:57)
[2020-10-21] MEDS: Ascorbic Acid 500 mg Chewable Tablet PO SCH (08:26)
[2020-10-21] MEDS: Zinc Sulfate 220 MG CAP PO SCH (08:26)
[2020-10-21] MEDS: metroNIDAZOLE 500 MG TAB PO SCH ×3 (08:26→20:57)
[2020-10-21] MEDS: Saccharomyces boulardii 250 MG CAP PO SCH (08:26)
[2020-10-21] MEDS: Lantus 1000 UNITS/10 ML VIAL SC SCH ×2 (08:30→21:00)
[2020-10-21] MEDS: Mometasone 200 MCG/Formoterol 5 MCG 120 PUFF INHALER INH SCH ×2 (10:25→18:16)
[2020-10-21] MEDS: Nystatin 500,000 UNITS/5 ML UDCUP SSW SCH ×3 (13:37→20:54)
[2020-10-21] MEDS: Lidocaine 4% Topical Sol 50 ML BOT TOP SCH (13:37)
[2020-10-21] MEDS: Benzonatate 100 MG CAP PO SCH ×3 (17:31→21:05)
[2020-10-21] MEDS: Atorvastatin Calcium 20 MG TAB PO SCH (20:57)
[2020-10-22] MEDS: HYDROcodone/Acetaminophen 7.5/325 mg Tablet PO SCH ×4 (01:04→19:03)
[2020-10-22] MEDS: Acetaminophen 325 MG TAB PO SCH ×4 (01:49→20:25)
[2020-10-22] MEDS: guaiFENesin/Codeine 200 mg/20 mg 10 ml Cup PO PRN ×3 (05:08→22:45)
[2020-10-22] MEDS: Ciprofloxacin 500 MG TAB PO SCH ×2 (05:08→20:26)
[2020-10-22] MEDS: Ascorbic Acid 500 mg Chewable Tablet PO SCH (09:01)
[2020-10-22] MEDS: metroNIDAZOLE 500 MG TAB PO SCH ×3 (09:01→20:26)
[2020-10-22] MEDS: Lantus 1000 UNITS/10 ML VIAL SC SCH ×2 (09:01→22:46)
[2020-10-22] MEDS: Saccharomyces boulardii 250 MG CAP PO SCH (09:02)
[2020-10-22] MEDS: Zinc Sulfate 220 MG CAP PO SCH (09:02)
[2020-10-22] MEDS: Enoxaparin Sodium 60 MG/0.6 ML SYRINGE SC SCH ×2 (09:02→20:26)
[2020-10-22] MEDS: Mometasone 200 MCG/Formoterol 5 MCG 120 PUFF INHALER INH SCH ×2 (09:57→19:38)
[2020-10-22] MEDS: Lidocaine 4% Topical Sol 50 ML BOT TOP SCH (10:47)
[2020-10-22] MEDS: Benzonatate 100 MG CAP PO SCH ×3 (10:48→20:27)
[2020-10-22] MEDS: Nystatin 500,000 UNITS/5 ML UDCUP SSW SCH ×4 (10:48→20:27)
[2020-10-22] MEDS ORDERED: Naloxone HCl 0.4 mg/ml Vial IV PRN (13:02)
[2020-10-22] MEDS: Guaifenesin DM 100-10/5 ML UDCUP PO PRN (14:58)
[2020-10-22] MEDS: Atorvastatin Calcium 20 MG TAB PO SCH (20:26)
[2020-10-22] MEDS: HumaLOG 300 UNITS/3 ML VIAL SC PRN (22:55)
[2020-10-23] MEDS: HYDROcodone/Acetaminophen 7.5/325 mg Tablet PO SCH ×5 (01:07→18:28)
[2020-10-23] MEDS: Acetaminophen 325 MG TAB PO SCH ×4 (01:07→20:50)
[2020-10-23] MEDS: Ciprofloxacin 500 MG TAB PO SCH ×2 (05:19→20:50)
[2020-10-23] MEDS: guaiFENesin/Codeine 200 mg/20 mg 10 ml Cup PO PRN ×2 (05:19→20:49)
[2020-10-23] MEDS: Enoxaparin Sodium 60 MG/0.6 ML SYRINGE SC SCH ×2 (08:07→20:53)
[2020-10-23] MEDS: Zinc Sulfate 220 MG CAP PO SCH (08:07)
[2020-10-23] MEDS: Saccharomyces boulardii 250 MG CAP PO SCH (08:08)
[2020-10-23] MEDS: Ascorbic Acid 500 mg Chewable Tablet PO SCH (08:08)
[2020-10-23] MEDS: metroNIDAZOLE 500 MG TAB PO SCH ×3 (08:08→20:50)
[2020-10-23] MEDS: Benzonatate 100 MG CAP PO SCH ×3 (08:09→20:53)
[2020-10-23] MEDS: Nystatin 500,000 UNITS/5 ML UDCUP SSW SCH ×4 (08:09→20:55)
[2020-10-23] MEDS: Lantus 1000 UNITS/10 ML VIAL SC SCH (08:10)
[2020-10-23] MEDS: Mometasone 200 MCG/Formoterol 5 MCG 120 PUFF INHALER INH SCH ×2 (09:49→21:47)
[2020-10-23 11:49] LABS: #Basophils 0.1 thou/uL (0.0-0.2); #Eosinphils 0.3 thou/uL (0.0-0.7); #Lymphocytes 2.3 thou/uL (1.20-3.40); #Monocytes 0.9 thou/uL (0.11-0.59); #Neutrophils 4.6 thou/uL (1.40-6.50); %Basophils 0.8 % (0.0-1.0); %Eosinophils 3.9 % (0.0-10.0); %Lymphocytes 27.9 % (21.0-51.0); %Monocytes 11.5 % (0.0-10.0); %Neutrophils 55.9 % (42.0-75.0); Hemoglobin 13.4 g/dL (14.0-18.0); Mean Corpuscular HGB CONC 33.4 g/dL (32.0-36.0); Mean Corpuscular Hemoglobin 30.7 pg (27.0-31.0); Mean Corpuscular Volume 91.7 fL (78.0-98.0); Mean Platelet Volume 8.1 fL (7.4-10.4); Platelet Count 326 thou/uL (130-400); RBC Distribution Width 14.6 % (11.5-14.5); Red Blood Cell (RBC) Count 4.37 mill/uL (4.70-6.10); White Blood Cell (WBC) Count 8.2 thou/uL (4.8-10.8)
[2020-10-23] MEDS: Lidocaine 4% Topical Sol 50 ML BOT TOP SCH (12:36)
[2020-10-23 12:42] LABS: SARS-CoV-2 PCR by NAA Not Detected (NotDetected)
[2020-10-23] MEDS: Phenazopyridine HCl 100 MG TAB PO SCH ×2 (13:03→17:12)
[2020-10-23] MEDS ORDERED: Insulin Regular 300 UNITS/3 ML VIAL SC PRN (16:13)
[2020-10-23] MEDS ORDERED: Dextrose 50% Abboject 50 ML SYRINGE SLOW IVP PRN (16:13)
[2020-10-23] MEDS ORDERED: Dextrose 5% in Water 1,000 ML IV PRN (16:13)
[2020-10-23] MEDS: Atorvastatin Calcium 20 MG TAB PO SCH (20:49)
[2020-10-23] MEDS ORDERED: Lantus 1000 UNITS/10 ML VIAL SC SCH (21:00)
[2020-10-24] MEDS: HYDROcodone/Acetaminophen 7.5/325 mg Tablet PO SCH ×3 (01:24→14:18)
[2020-10-24] MEDS: Acetaminophen 325 MG TAB PO SCH ×3 (01:37→14:15)
[2020-10-24] MEDS: Ciprofloxacin 500 MG TAB PO SCH (05:26)
[2020-10-24 05:59] LABS: Platelet Count 308 thou/uL (130-400)
[2020-10-24] MEDS ORDERED: Lantus 1000 UNITS/10 ML VIAL SC SCH (09:00)
[2020-10-24] MEDS: Zinc Sulfate 220 MG CAP PO SCH (09:45)
[2020-10-24] MEDS: metroNIDAZOLE 500 MG TAB PO SCH ×2 (09:45→15:15)
[2020-10-24] MEDS: Enoxaparin Sodium 60 MG/0.6 ML SYRINGE SC SCH (09:45)
[2020-10-24] MEDS: Saccharomyces boulardii 250 MG CAP PO SCH (09:46)
[2020-10-24] MEDS: Ascorbic Acid 500 mg Chewable Tablet PO SCH (09:46)
[2020-10-24] MEDS: Phenazopyridine HCl 100 MG TAB PO SCH ×2 (09:46→15:15)
[2020-10-24] MEDS: guaiFENesin/Codeine 200 mg/20 mg 10 ml Cup PO PRN ×2 (09:57→15:56)
[2020-10-24] MEDS: Mometasone 200 MCG/Formoterol 5 MCG 120 PUFF INHALER INH SCH (10:08)
[2020-10-24 11:58] VITALS: TEMP 98
[2020-10-24] MEDS: Lidocaine 4% Topical Sol 50 ML BOT TOP SCH (14:16)
[2020-10-24] MEDS: Benzonatate 100 MG CAP PO SCH (14:16)
[2020-10-24] MEDS: Nystatin 500,000 UNITS/5 ML UDCUP SSW SCH (14:18)
[2020-10-24 16:35] VITALS: BP 134/86
== END 2020-10-24 17:04 | disposition home or self-care (01) | DRG 853 ==
LOC: ERS 13:54 → ERHOLD 15:36 → 2SE 09-30 13:16 → PACU-TCU 10-01 20:25 → CCU 10-01 21:04 → IMCU/EMU 10-02 00:20 → PACU-TCU 10-02 12:35 → SURG A 10-02 16:08
PROVIDERS: ADMIT Internal Medicine; ATTEND Hospitalist
PROC: 0JBB0ZZ Excision of Perineum Subcutaneous Tissue and Fascia, Open Approach (ICD-10-PCS; principal; 2020-09-29)
PROC: 3E0333Z Introduction of Anti-inflammatory into Peripheral Vein, Percutaneous Approach (ICD-10-PCS; 2020-09-29)
PROC: 0JBB0ZZ Excision of Perineum Subcutaneous Tissue and Fascia, Open Approach (ICD-10-PCS; 2020-10-02)
PROC: 0JBB0ZZ Excision of Perineum Subcutaneous Tissue and Fascia, Open Approach (ICD-10-PCS; 2020-10-04)
PROC: 0D1L0Z4 Bypass Transverse Colon to Cutaneous, Open Approach (ICD-10-PCS; 2020-10-04)
PROC: 0JBB0ZZ Excision of Perineum Subcutaneous Tissue and Fascia, Open Approach (ICD-10-PCS; 2020-10-06)
PROC: 0KBM0ZZ Excision of Perineum Muscle, Open Approach (ICD-10-PCS; 2020-10-08)
PROC: 0JBB0ZZ Excision of Perineum Subcutaneous Tissue and Fascia, Open Approach (ICD-10-PCS; 2020-10-10)
PROC: 3E033XZ Introduction of Vasopressor into Peripheral Vein, Percutaneous Approach (ICD-10-PCS; 2020-10-12)
DX: A41.9 Sepsis, unspecified organism (principal); J96.21 Acute and chronic respiratory failure with hypoxia; B37.0 Candidal stomatitis; E87.1 Hypo-osmolality and hyponatremia; B37.89 Other sites of candidiasis; B00.2 Herpesviral gingivostomatitis and pharyngotonsillitis; Z68.41 Body mass index [BMI] 40.0-44.9, adult; Z20.822 Contact with and (suspected) exposure to COVID-19; K21.9 Gastro-esophageal reflux disease without esophagitis; E66.01 Morbid (severe) obesity due to excess calories; F19.10 Other psychoactive substance abuse, uncomplicated; T38.0X5A Adverse effect of glucocorticoids and synthetic analogues, initial encounter; E11.65 Type 2 diabetes mellitus with hyperglycemia; N49.3 Fournier gangrene; E78.5 Hyperlipidemia, unspecified; E78.00 Pure hypercholesterolemia, unspecified; J45.20 Mild intermittent asthma, uncomplicated; F17.210 Nicotine dependence, cigarettes, uncomplicated; B96.20 Unspecified Escherichia coli [E. coli] as the cause of diseases classified elsewhere; B96.1 Klebsiella pneumoniae [K. pneumoniae] as the cause of diseases classified elsewhere; B96.89 Other specified bacterial agents as the cause of diseases classified elsewhere; B95.5 Unspecified streptococcus as the cause of diseases classified elsewhere; E87.6 Hypokalemia; Z90.49 Acquired absence of other specified parts of digestive tract; Z82.49 Family history of ischemic heart disease and other diseases of the circulatory system; Z88.5 Allergy status to narcotic agent; Z79.01 Long term (current) use of anticoagulants; Z79.84 Long term (current) use of oral hypoglycemic drugs; Z79.82 Long term (current) use of aspirin; Z79.51 Long term (current) use of inhaled steroids; Z79.52 Long term (current) use of systemic steroids; Z79.899 Other long term (current) drug therapy; Z86.16 Personal history of COVID-19
CPT/HCPCS: 36415; 36416; 71045; 76870; 80048; 80053; 80202; 81003; 82728; 83605; 83735; 84100; 85007; 85014; 85018; 85025; 85027; 85049; 85379; 85610; 85730; 86140; 86850; 86900; 86901; 87040; 87070; 87076; 87077; 87186; 87205; 87529; 88304; 93976; 94640; 96365; 96375; J0171; J0696; J1100; J1170; J1650; J1815; J1885; J2001; J2250; J2270; J2370; J2405; J2543; J2704; J3010; J3370; J3475; J3480; J3490; J7030; J7050; J7620; Q0163; S0020; S0028; U0002; U0003; U0005

== ENCOUNTER 2021-04-26 07:00 | Inpatient (IN) | payer OTHER ==
[2021-05-01] MEDS ORDERED: Ketorolac Tromethamine 30 MG/ML VIAL ONE (11:08)
[2021-05-01] MEDS ORDERED: Heparin 5,000 UNITS/ML VIAL ONE (11:08)
[2021-05-01 11:52] LABS: ALT (SGPT) 19 U/L (8-55); AST (SGOT) 21 U/L (5-34); Albumin 3.6 g/dL (3.5-5.0); Alkaline Phosphatase 107 U/L (40-110); Bilirubin, Direct 0.2 mg/dL (0.1-0.3); Bilirubin, Total 0.6 mg/dL (0.2-1.2); Protein, Total 6.5 g/dL (6.0-8.3)
[2021-05-01] MEDS ORDERED: Insulin Regular 300 UNITS/3 ML VIAL ONE (12:40)
[2021-05-01] MEDS ORDERED: Fentanyl 100 MCG/2 ML VIAL ONE ×2 (12:41→16:45)
[2021-05-01] MEDS ORDERED: Lidocaine 1% PF 5 ML VIAL ONE (12:49)
[2021-05-01] MEDS ORDERED: PROPOFOL 200 MG/20 ML VIAL ONE (12:49)
[2021-05-01] MEDS ORDERED: Rocuronium Bromide 10 MG/ML (10ML VIAL) ONE (12:49)
[2021-05-01] MEDS ORDERED: PHENYLEPHRINE-NS 100 MCG/ML 10 ML SYRINGE ONE (12:49)
[2021-05-01] MEDS ORDERED: Glycopyrrolate 0.2 MG/ML 5 ML SYRINGE ONE (12:49)
[2021-05-01] MEDS ORDERED: cefOXitin 2 GM VIAL ONE ×2 (13:00→15:14)
[2021-05-01] MEDS ORDERED: Sodium Chloride 0.9% 100 ML ONE (13:02)
[2021-05-01] MEDS ORDERED: Ondansetron HCl/PF 4 MG/2 ML Vial IVP PRN (13:34)
[2021-05-01] MEDS ORDERED: PACU-Morphine 4MG/ML VIAL SLOW IVP PRN (13:34)
[2021-05-01] MEDS ORDERED: Promethazine HCl 25 MG/ML VIAL IVPB PRN (13:34)
[2021-05-01] MEDS ORDERED: Promethazine HCl 25 MG/ML VIAL IM PRN ×2 (13:34→16:27)
[2021-05-01] MEDS ORDERED: Albumin 5% 500 ML ONE (13:39)
[2021-05-01] MEDS ORDERED: PROPOFOL 20 ML ONE (15:26)
[2021-05-01] MEDS ORDERED: Dextrose 5% in Water 1,000 ML IV PRN (16:27)
[2021-05-01] MEDS ORDERED: Dextrose 50% Abboject 50 ML SYRINGE SLOW IVP PRN (16:27)
[2021-05-01] MEDS ORDERED: diphenhydrAMINE 25 MG CAP PO PRN (16:27)
[2021-05-01] MEDS ORDERED: Ondansetron PF 4 MG/2 ML Vial IVP PRN (16:27)
[2021-05-01] MEDS ORDERED: diphenhydrAMINE 50 MG/ML VIAL IVP PRN (16:27)
[2021-05-01] MEDS ORDERED: Ondansetron ODT 4 MG TAB PO PRN (16:27)
[2021-05-01] MEDS ORDERED: HYDROmorphone 10 mg/100 ml CADD IVPB PRN (16:27)
[2021-05-01] MEDS ORDERED: Naloxone HCl 0.4 mg/ml Vial IV PRN (16:27)
[2021-05-01] MEDS ORDERED: diphenhydrAMINE 50 MG/ML VIAL IM PRN (16:27)
[2021-05-01] MEDS ORDERED: Communication Order-Pharmacy FS SCH (16:30)
[2021-05-01] MEDS ORDERED: Piperacillin/Tazobactam 3.375 GM in Sodium Chloride 0.9% 100 ML IVPB SCH (20:00)
[2021-05-01] MEDS ORDERED: Albuterol Sulfate 1.25 MG/3 ML NEB NEB PRN (20:12)
[2021-05-01] MEDS: Sodium Chloride 0.9% 1,000 ML IV SCH (20:13)
[2021-05-01] MEDS: Acetaminophen 325 MG TAB PO SCH (20:13)
[2021-05-01] MEDS: Ketorolac Tromethamine 30 MG/ML VIAL IVP SCH (20:13)
[2021-05-01] MEDS: Atorvastatin Calcium 20 MG TAB PO SCH (20:14)
[2021-05-01] MEDS: Lantus 1000 UNITS/10 ML VIAL SC SCH (21:10)
[2021-05-02] MEDS: Acetaminophen 325 MG TAB PO SCH ×4 (00:21→17:58)
[2021-05-02] MEDS: Ketorolac Tromethamine 30 MG/ML VIAL IVP SCH ×4 (00:22→17:57)
[2021-05-02] MEDS: Piperacillin/Tazobactam 3.375 GM in Sodium Chloride 0.9% 100 ML IVPB SCH ×3 (00:23→16:40)
[2021-05-02 01:02] VITALS: BMI 40.6
[2021-05-02] MEDS: Sodium Chloride 0.9% 1,000 ML IV SCH ×3 (03:11→17:59)
[2021-05-02 06:29] LABS: #Eosinphils 0.1 thou/uL (0.0-0.7); #Lymphocytes 1.4 thou/uL (1.20-3.40); #Neutrophils 9.6 thou/uL (1.40-6.50); %Basophils 0.2 % (0.0-1.0); %Eosinophils 0.5 % (0.0-10.0); %Lymphocytes 11.4 % (21.0-51.0); %Monocytes 8.3 % (0.0-10.0); %Neutrophils 79.6 % (42.0-75.0); Hemoglobin 11.6 g/dL (14.0-18.0); Mean Corpuscular HGB CONC 32.2 g/dL (32.0-36.0); Mean Corpuscular Hemoglobin 27.7 pg (27.0-31.0); Mean Corpuscular Volume 85.9 fL (78.0-98.0); Mean Platelet Volume 8.2 fL (7.4-10.4); Platelet Count 205 thou/uL (130-400); Red Blood Cell (RBC) Count 4.18 mill/uL (4.70-6.10); White Blood Cell (WBC) Count 12.1 thou/uL (4.8-10.8)
[2021-05-02 06:44] LABS: Phosphorus 3.6 mg/dL (2.3-4.7)
[2021-05-02 07:13] LABS: Anion Gap 11 mmol/L (10-20); BUN (Urea Nitrogen) 8 mg/dL (8.4-25.7); Calc. Creatinine Clearance 140 mL/min (70-130); Calcium 8.2 mg/dL (7.8-10.44); Carbon Dioxide 27 mmol/L (22-29); Chloride 104 mmol/L (98-107); Glucose 148 mg/dL (70-105); Magnesium 1.7 mg/dL (1.6-2.6); Potassium 3.8 mmol/L (3.5-5.1); Sodium 138 mmol/L (136-145)
[2021-05-02] MEDS: Enoxaparin Sodium 40 MG/0.4 ML SYRINGE SC SCH (08:33)
[2021-05-02] MEDS: Atorvastatin Calcium 20 MG TAB PO SCH (20:30)
[2021-05-02] MEDS: Lantus 1000 UNITS/10 ML VIAL SC SCH (22:20)
[2021-05-03] MEDS: Acetaminophen 325 MG TAB PO SCH ×5 (00:26→23:27)
[2021-05-03] MEDS: Ketorolac Tromethamine 30 MG/ML VIAL IVP SCH ×4 (00:35→17:52)
[2021-05-03] MEDS: Piperacillin/Tazobactam 3.375 GM in Sodium Chloride 0.9% 100 ML IVPB SCH ×4 (00:36→23:27)
[2021-05-03] MEDS: Sodium Chloride 0.9% 1,000 ML IV SCH ×3 (04:53→17:51)
[2021-05-03 06:26] LABS: #Eosinphils 0.4 thou/uL (0.0-0.7); #Lymphocytes 1.3 thou/uL (1.20-3.40); #Neutrophils 8.3 thou/uL (1.40-6.50); %Basophils 0.1 % (0.0-1.0); %Eosinophils 3.5 % (0.0-10.0); %Lymphocytes 12.1 % (21.0-51.0); %Monocytes 8.8 % (0.0-10.0); %Neutrophils 75.6 % (42.0-75.0); Hemoglobin 10.9 g/dL (14.0-18.0); Mean Corpuscular HGB CONC 32.2 g/dL (32.0-36.0); Mean Corpuscular Hemoglobin 27.6 pg (27.0-31.0); Mean Corpuscular Volume 85.6 fL (78.0-98.0); Mean Platelet Volume 8.2 fL (7.4-10.4); Platelet Count 189 thou/uL (130-400); RBC Distribution Width 14.8 % (11.5-14.5); Red Blood Cell (RBC) Count 3.95 mill/uL (4.70-6.10)
[2021-05-03 06:55] LABS: Anion Gap 11 mmol/L (10-20); BUN (Urea Nitrogen) 8 mg/dL (8.4-25.7); Calc. Creatinine Clearance 204 mL/min (70-130); Carbon Dioxide 25 mmol/L (22-29); Chloride 104 mmol/L (98-107); Glucose 106 mg/dL (70-105); Magnesium 1.8 mg/dL (1.6-2.6); Phosphorus 2.2 mg/dL (2.3-4.7); Potassium 3.6 mmol/L (3.5-5.1); Sodium 136 mmol/L (136-145)
[2021-05-03] MEDS: Enoxaparin Sodium 40 MG/0.4 ML SYRINGE SC SCH (08:35)
[2021-05-03] MEDS ORDERED: Magnesium Sulfate 2 GM in Sodium Chloride 0.9% 100 ML IVPB SCH (09:00)
[2021-05-03] MEDS ORDERED: Potassium Phosphate 30 MMOL, Magnesium Sulfate 2 GM in Sodium Chloride 0.9% 250 ML IVPB SCH (10:00)
[2021-05-03] MEDS: Lantus 1000 UNITS/10 ML VIAL SC SCH (20:26)
[2021-05-03] MEDS: Atorvastatin Calcium 20 MG TAB PO SCH (20:26)
[2021-05-04] MEDS: Sodium Chloride 0.9% 1,000 ML IV SCH (02:17)
[2021-05-04] MEDS: Acetaminophen 325 MG TAB PO SCH ×3 (05:39→15:52)
[2021-05-04 06:17] LABS: #Eosinphils 0.6 thou/uL (0.0-0.7); #Lymphocytes 1.3 thou/uL (1.20-3.40); #Monocytes 0.7 thou/uL (0.11-0.59); #Neutrophils 6.3 thou/uL (1.40-6.50); %Basophils 0.3 % (0.0-1.0); %Eosinophils 6.3 % (0.0-10.0); %Lymphocytes 14.1 % (21.0-51.0); %Neutrophils 71.3 % (42.0-75.0); Hemoglobin 10.5 g/dL (14.0-18.0); Mean Corpuscular HGB CONC 30.9 g/dL (32.0-36.0); Mean Corpuscular Hemoglobin 26.4 pg (27.0-31.0); Mean Corpuscular Volume 85.5 fL (78.0-98.0); Mean Platelet Volume 8.7 fL (7.4-10.4); Platelet Count 180 thou/uL (130-400); RBC Distribution Width 14.8 % (11.5-14.5); Red Blood Cell (RBC) Count 3.96 mill/uL (4.70-6.10); White Blood Cell (WBC) Count 8.8 thou/uL (4.8-10.8)
[2021-05-04 06:34] LABS: BUN (Urea Nitrogen) 7 mg/dL (8.4-25.7); Calc. Creatinine Clearance 208 mL/min (70-130); Calcium 8.1 mg/dL (7.8-10.44); Carbon Dioxide 19 mmol/L (22-29); Chloride 107 mmol/L (98-107); Glucose 73 mg/dL (70-105); Magnesium 1.9 mg/dL (1.6-2.6); Phosphorus 2.1 mg/dL (2.3-4.7); Potassium 3.7 mmol/L (3.5-5.1); Sodium 136 mmol/L (136-145)
[2021-05-04 06:39] LABS: Anion Gap 14 mmol/L (10-20)
[2021-05-04] MEDS ORDERED: Potassium Phosphate 30 MMOL, Magnesium Sulfate 2 GM in Sodium Chloride 0.9% 250 ML IVPB SCH (09:00)
[2021-05-04] MEDS: Piperacillin/Tazobactam 3.375 GM in Sodium Chloride 0.9% 100 ML IVPB SCH ×2 (09:00→15:52)
[2021-05-04] MEDS ORDERED: Magnesium Sulfate 2 GM in Sodium Chloride 0.9% 100 ML IVPB SCH (09:00)
[2021-05-04] MEDS: Enoxaparin Sodium 40 MG/0.4 ML SYRINGE SC SCH (09:01)
[2021-05-04] MEDS: Saccharomyces boulardii 250 MG CAP PO SCH (09:01)
[2021-05-04] MEDS: traMADol HCl 50 MG TAB PO SCH ×3 (15:29→21:03)
[2021-05-04] MEDS: Atorvastatin Calcium 20 MG TAB PO SCH (20:29)
[2021-05-04] MEDS: Lantus 1000 UNITS/10 ML VIAL SC SCH (20:32)
[2021-05-05] MEDS: Acetaminophen 325 MG TAB PO SCH ×4 (00:36→16:13)
[2021-05-05] MEDS: Piperacillin/Tazobactam 3.375 GM in Sodium Chloride 0.9% 100 ML IVPB SCH ×3 (00:37→16:14)
[2021-05-05] MEDS: traMADol HCl 50 MG TAB PO SCH ×4 (01:32→16:12)
[2021-05-05] MEDS: Insulin Regular 300 UNITS/3 ML VIAL SC PRN ×2 (01:33→21:30)
[2021-05-05 06:30] LABS: #Eosinphils 0.6 thou/uL (0.0-0.7); #Lymphocytes 1.3 thou/uL (1.20-3.40); #Monocytes 0.7 thou/uL (0.11-0.59); #Neutrophils 4.1 thou/uL (1.40-6.50); %Basophils 0.1 % (0.0-1.0); %Eosinophils 8.8 % (0.0-10.0); %Lymphocytes 19.7 % (21.0-51.0); %Monocytes 10.3 % (0.0-10.0); Hemoglobin 10.4 g/dL (14.0-18.0); Mean Corpuscular HGB CONC 31.6 g/dL (32.0-36.0); Mean Corpuscular Hemoglobin 26.7 pg (27.0-31.0); Mean Corpuscular Volume 84.4 fL (78.0-98.0); Mean Platelet Volume 7.8 fL (7.4-10.4); Platelet Count 254 thou/uL (130-400); RBC Distribution Width 14.9 % (11.5-14.5); White Blood Cell (WBC) Count 6.6 thou/uL (4.8-10.8)
[2021-05-05 07:04] LABS: Anion Gap 9 mmol/L (10-20); BUN (Urea Nitrogen) 4 mg/dL (8.4-25.7); Calc. Creatinine Clearance 183 mL/min (70-130); Calcium 8.3 mg/dL (7.8-10.44); Carbon Dioxide 27 mmol/L (22-29); Chloride 105 mmol/L (98-107); Glucose 145 mg/dL (70-105); Phosphorus 2.6 mg/dL (2.3-4.7); Potassium 3.1 mmol/L (3.5-5.1); Sodium 138 mmol/L (136-145)
[2021-05-05] MEDS ORDERED: Potassium Phosphate 30 MMOL in Sodium Chloride 0.9% 250 ML 250 ML IVPB SCH (08:15)
[2021-05-05] MEDS: Saccharomyces boulardii 250 MG CAP PO SCH (08:29)
[2021-05-05] MEDS: Enoxaparin Sodium 40 MG/0.4 ML SYRINGE SC SCH (08:29)
[2021-05-05] MEDS: Sodium Chloride 0.9% 1,000 ML IV SCH (11:27)
[2021-05-05] MEDS: Atorvastatin Calcium 20 MG TAB PO SCH (21:29)
[2021-05-05] MEDS: Lantus 1000 UNITS/10 ML VIAL SC SCH (21:29)
[2021-05-06] MEDS: Piperacillin/Tazobactam 3.375 GM in Sodium Chloride 0.9% 100 ML IVPB SCH ×2 (00:30→08:58)
[2021-05-06] MEDS: Acetaminophen 325 MG TAB PO SCH ×3 (00:30→13:32)
[2021-05-06] MEDS: traMADol HCl 50 MG TAB PO SCH ×5 (02:00→15:22)
[2021-05-06 06:10] LABS: Anion Gap 10 mmol/L (10-20); BUN (Urea Nitrogen) 4 mg/dL (8.4-25.7); Calc. Creatinine Clearance 175 mL/min (70-130); Calcium 8.7 mg/dL (7.8-10.44); Carbon Dioxide 27 mmol/L (22-29); Chloride 102 mmol/L (98-107); Glucose 141 mg/dL (70-105); Magnesium 1.8 mg/dL (1.6-2.6); Phosphorus 3.2 mg/dL (2.3-4.7); Potassium 3.4 mmol/L (3.5-5.1); Sodium 136 mmol/L (136-145)
[2021-05-06] MEDS: Enoxaparin Sodium 40 MG/0.4 ML SYRINGE SC SCH (09:00)
[2021-05-06] MEDS: Saccharomyces boulardii 250 MG CAP PO SCH (09:00)
[2021-05-06 15:45] VITALS: BP 150/81; TEMP 97.8
== END 2021-05-06 16:00 | disposition home or self-care (01) | DRG 330 ==
LOC: SURG A 05-01 10:15 → SJJU 05-01 18:07
PROVIDERS: ADMIT Surgery; ATTEND Surgery
PROC: 0DBL0ZZ Excision of Transverse Colon, Open Approach (ICD-10-PCS; principal; 2021-05-02)
PROC: 0DNB0ZZ Release Ileum, Open Approach (ICD-10-PCS; 2021-05-02)
PROC: 0D9670Z Drainage of Stomach with Drainage Device, Via Natural or Artificial Opening (ICD-10-PCS; 2021-05-02)
DX: Z43.3 Encounter for attention to colostomy (principal); Z68.41 Body mass index [BMI] 40.0-44.9, adult; M19.90 Unspecified osteoarthritis, unspecified site; J45.909 Unspecified asthma, uncomplicated; E78.00 Pure hypercholesterolemia, unspecified; E11.9 Type 2 diabetes mellitus without complications; E66.9 Obesity, unspecified; K66.0 Peritoneal adhesions (postprocedural) (postinfection); E83.39 Other disorders of phosphorus metabolism; E87.6 Hypokalemia; Z90.49 Acquired absence of other specified parts of digestive tract; Z98.890 Other specified postprocedural states; Z87.891 Personal history of nicotine dependence
CPT/HCPCS: 36415; 36416; 80048; 80076; 83735; 84100; 85025; 86850; 86900; 86901; 88307; 94640; A4649; C1776; J0694; J1644; J1650; J1815; J1885; J2543; J2704; J3010; J3475; J3490; J7030; J7050; J7620; P9045

== ENCOUNTER 2021-04-26 12:46 | Outpatient (CLI) | payer OTHER ==
[2021-04-26 14:34] LABS: #Eosinphils 0.2 10x3/uL (0.0-0.5); #Monocytes 1.2 10x3/uL (0.0-1.1); #Neutrophils 5.9 10x3/uL (1.5-8.4); %Basophils 0.3 % (0.0-2.0); %Eosinophils 2.4 % (0.0-6.0); %Lymphocytes 25.2 % (18.0-47.0); %Neutrophils 59.8 % (40.0-75.0); Hemoglobin 14.4 g/dL (13.5-17.5); Mean Corpuscular Hemoglobin 25.6 pg (27.0-33.0); Mean Corpuscular Volume 77.4 fl (81.2-95.1); Mean Platelet Volume 11.3 fl (7.4-10.4); Platelet Count 337 10x3/uL (150-450); RBC Distribution Width 15.6 % (11.5-14.5); Red Blood Cell (RBC) Count 5.63 10x6/uL (4.32-5.72); White Blood Cell (WBC) Count 9.8 10x3/uL (3.5-10.5)
[2021-04-26 14:58] LABS: ALT (SGPT) 28 U/L (8-55); AST (SGOT) 27 U/L (5-34); Albumin 4.3 g/dL (3.5-5.0); Alkaline Phosphatase 141 U/L (40-110); Anion Gap 18 mmol/L (10-20); BUN (Urea Nitrogen) 8 mg/dL (8.4-25.7); Bilirubin, Total 0.8 mg/dL (0.2-1.2); Calc. Creatinine Clearance 0 mL/min (70-130); Calcium 10.4 mg/dL (7.8-10.44); Carbon Dioxide 22 mmol/L (22-29); Chloride 99 mmol/L (98-107); Globulin 3.5 g/dL (2.4-3.5); Glucose 217 mg/dL (70-105); Potassium 3.6 mmol/L (3.5-5.1); Protein, Total 7.8 g/dL (6.0-8.3); Sodium 135 mmol/L (136-145)
[2021-04-26 19:19] LABS: Hemoglobin A1c 9.8 % (4.0-6.0)
[2021-04-26 23:48] LABS: SARS-CoV-2 PCR by NAA Not Detected (NotDetected)
== END 2021-04-26 12:47 | disposition home or self-care (01) ==
LOC: LABBT 12:46
PROVIDERS: ATTEND Surgery
DX: Z01.818 Encounter for other preprocedural examination (principal); Z93.2 Ileostomy status; Z20.822 Contact with and (suspected) exposure to COVID-19
CPT/HCPCS: 80053; 83036; 85025; 93005; 93010; U0003; U0005

== ENCOUNTER 2023-01-09 16:37 | Emergency (ER) | payer OTHER, SELFPAY | END 2023-01-09 19:52 | disposition home or self-care (01) | LOC: ERS 16:37 | DX: M25.562 Pain in left knee (principal); M54.2 Cervicalgia; M79.602 Pain in left arm; R10.32 Left lower quadrant pain; E11.9 Type 2 diabetes mellitus without complications; F17.210 Nicotine dependence, cigarettes, uncomplicated; W19.XXXA Unspecified fall, initial encounter | CPT/HCPCS: 70450; 72125 ==

== ENCOUNTER 2024-02-20 20:54 | Emergency (ER) | payer OTHER ==
[2024-02-20] MEDS ORDERED: Ketorolac Tromethamine 30 MG (1 mL) VIAL ONE ×2 (22:04)
[2024-02-20] MEDS ORDERED: Acetaminophen 500 MG TAB ONE (22:04)
== END 2024-02-20 22:40 | disposition home or self-care (01) ==
LOC: ERS 20:54
DX: J20.9 Acute bronchitis, unspecified (principal); E11.9 Type 2 diabetes mellitus without complications; E78.5 Hyperlipidemia, unspecified; F17.210 Nicotine dependence, cigarettes, uncomplicated
CPT/HCPCS: 71045; 96372; J1885

== ENCOUNTER 2024-02-28 16:51 | Observation (INO) | payer OTHER ==
[~2024-02-28 16:51] MED LIST: Iopamidol-370 76% 500 ML MDV (1 ML CHARGE) ONE
[2024-02-28 17:47] LABS: #Basophils Less than 0.03 10x3/uL (0.0-0.2); %Basophils 0.2 % (0.0-1.0); %Eosinophils 3.6 % (0.0-10.0); %Monocytes 11.4 % (0.0-10.0); %Neutrophils 66.4 % (42.0-75.0); Hematocrit 41.8 % (42.0-52.0); Hemoglobin 13.2 g/dL (14.0-18.0); Mean Corpuscular HGB CONC 31.6 g/dL (32.0-36.0); Mean Corpuscular Hemoglobin 24.2 pg (27.0-31.0); Mean Corpuscular Volume 76.7 fL (78.0-98.0); Mean Platelet Volume 10.8 fL (7.4-10.4); Platelet Count 230 10x3/uL (130-400); RBC Distribution Width 15.9 % (11.5-14.5); Red Blood Cell (RBC) Count 5.45 mill/uL (4.70-6.10)
[2024-02-28 18:03] LABS: ALT (SGPT) 23 U/L (8-55); AST (SGOT) 28 U/L (5-34); Albumin 3.5 g/dL (3.4-4.8); Alkaline Phosphatase 131 U/L (40-110); Anion Gap 14 mmol/L (10-20); BUN (Urea Nitrogen) 11 mg/dL (8.4-25.7); Bilirubin, Total 0.5 mg/dL (0.2-1.2); Calc. Creatinine Clearance 0 mL/min (70-130); Calcium 8.7 mg/dL (7.8-10.44); Carbon Dioxide 22 mmol/L (23-31); Chloride 102 mmol/L (98-107); Estimated GFR 100; Globulin 4.4 g/dL (2.4-3.5); Glucose 367 mg/dL (80-115); Potassium 4.5 mmol/L (3.5-5.1); Protein, Total 7.9 g/dL (5.8-8.1); Sodium 133 mmol/L (136-145)
[2024-02-28 18:07] LABS: Troponin I 0.091 ng/mL (< 0.028)
[2024-02-28] MEDS ORDERED: Morphine 4 MG/ML VIAL ONE (18:52)
[2024-02-28] MEDS ORDERED: Ondansetron PF 4 MG/2 ML Vial ONE (18:52)
[2024-02-28] MEDS ORDERED: Ondansetron ODT 4 MG TAB PO PRN (19:40)
[2024-02-28] MEDS ORDERED: Ondansetron PF 4 MG/2 ML Vial IVP PRN (19:40)
[2024-02-28] MEDS ORDERED: traMADol HCl 50 MG TAB PO PRN (19:40)
[2024-02-28] MEDS ORDERED: Glucagon 1 MG/ML KIT IM PRN (19:43)
[2024-02-28] MEDS ORDERED: Insulin Lispro 100 UNIT/ML 10 ML VIAL SC PRN (19:43)
[2024-02-28] MEDS ORDERED: Dextrose 50% Abboject 50 ML SYRINGE SLOW IVP PRN (19:43)
[2024-02-28] MEDS ORDERED: Dextrose 5% in Water 1,000 ML IV PRN (19:43)
[2024-02-28] MEDS ORDERED: Aspirin Chewable 81 MG TAB ONE (19:56)
[2024-02-28 20:28] LABS: Troponin I 0.127 ng/mL (< 0.028)
[2024-02-28] MEDS ORDERED: Ipratropium/Albuterol 3 ML NEB NEB PRN (21:08)
[2024-02-28 21:30] LABS: Hemoglobin A1c 7.6 % (4.0-6.0)
[2024-02-28 21:33] LABS: Cardiac Risk 3.7 (Less than 4.5)
[2024-02-28] MEDS: Famotidine 20 MG TAB PO SCH (21:41)
[2024-02-28] MEDS: methylPREDNISolone Sod Succ 40 MG VIAL IVP SCH (21:41)
[2024-02-28 22:00] VITALS: BMI 40.1
[2024-02-28 23:11] LABS: Troponin I 0.158 ng/mL (< 0.028)
[2024-02-29 01:04] LABS: Amphetamine Detected (NotDetected); Barbiturates Screen Not Detected (NotDetected); Benzodiazepine Screen Not Detected (NotDetected); Cocaine Metabolite Screen Detected (NotDetected); Methadone Not Detected (NotDetected); Methamphetamine Detected (NotDetected); Opiate Screen Detected (NotDetected); Oxycodone Screen Not Detected (NotDetected); Phencyclidine (PCP) Not Detected (NotDetected); THC/Cannabinoid Screen Not Detected (NotDetected); Tricyclic Screen Not Detected (NotDetected)
[2024-02-29 04:40] LABS: #Basophils Less than 0.03 10x3/uL (0.0-0.2); #Eosinophils Less than 0.03 10x3/uL (0.0-0.7); %Basophils 0.1 % (0.0-1.0); %Monocytes 1.6 % (0.0-10.0); %Neutrophils 88.9 % (42.0-75.0); Hematocrit 42.7 % (42.0-52.0); Hemoglobin 13.1 g/dL (14.0-18.0); Mean Corpuscular HGB CONC 30.7 g/dL (32.0-36.0); Mean Corpuscular Hemoglobin 24.3 pg (27.0-31.0); Mean Corpuscular Volume 79.2 fL (78.0-98.0); Mean Platelet Volume 11.1 fL (7.4-10.4); Platelet Count 238 10x3/uL (130-400); RBC Distribution Width 16.3 % (11.5-14.5); Red Blood Cell (RBC) Count 5.39 mill/uL (4.70-6.10)
[2024-02-29 05:02] LABS: ALT (SGPT) 22 U/L (8-55); AST (SGOT) 20 U/L (5-34); Albumin 3.6 g/dL (3.4-4.8); Alkaline Phosphatase 127 U/L (40-110); Anion Gap 9 mmol/L (10-20); BUN (Urea Nitrogen) 13 mg/dL (8.4-25.7); Bilirubin, Total 0.4 mg/dL (0.2-1.2); Calc. Creatinine Clearance 143 mL/min (70-130); Carbon Dioxide 26 mmol/L (23-31); Chloride 105 mmol/L (98-107); Estimated GFR 99; Globulin 4.5 g/dL (2.4-3.5); Glucose 242 mg/dL (80-115); Potassium 5.3 mmol/L (3.5-5.1); Protein, Total 8.1 g/dL (5.8-8.1); Sodium 135 mmol/L (136-145)
[2024-02-29 05:04] LABS: Troponin I 0.109 ng/mL (< 0.028)
[2024-02-29] MEDS: Enoxaparin 40 MG (0.4 mL) SYRINGE SC SCH (08:43)
[2024-02-29] MEDS: Aspirin Chewable 81 MG TAB PO SCH (08:57)
[2024-02-29] MEDS: Acetaminophen 325 MG TAB PO PRN (10:11)
[2024-02-29] MEDS: Insulin Lispro 100 UNIT/ML 10 ML VIAL SC PRN (10:13)
[2024-02-29 11:07] VITALS: BP 158/82; TEMP 97.7
[2024-02-29] MEDS ORDERED: Atorvastatin Calcium 20 MG TAB PO SCH (21:00)
[2024-02-29] MEDS ORDERED: Pantoprazole 40 MG DR.TAB PO SCH (21:00)
== END 2024-02-29 13:52 | disposition home or self-care (01) ==
LOC: ERS 16:51 → OBS 19:39
PROVIDERS: ADMIT Internal Medicine; ATTEND Internal Medicine
DX: I20.89 Other forms of angina pectoris (principal); E11.9 Type 2 diabetes mellitus without complications; E66.9 Obesity, unspecified; J45.909 Unspecified asthma, uncomplicated; K21.9 Gastro-esophageal reflux disease without esophagitis; F17.210 Nicotine dependence, cigarettes, uncomplicated; F14.90 Cocaine use, unspecified, uncomplicated; Z88.8 Allergy status to other drugs, medicaments and biological substances; Z79.51 Long term (current) use of inhaled steroids; Z79.84 Long term (current) use of oral hypoglycemic drugs; Z79.899 Other long term (current) drug therapy
CPT/HCPCS: 36415; 36416; 70450; 71045; 71275; 74174; 80053; 80061; 80306; 83036; 83690; 84145; 84484; 85025; 93005; 94760; 96372; 96374; 96375; 96376; G0378; J1650; J1815; J2270; J2405; J2919; Q9967